=== PATIENT | male | born 1950 | race Caucasian/White ===

== ENCOUNTER 2023-04-02 18:03 | Inpatient (IN) | payer OTHER, SELFPAY ==
[2023-04-02] VITALS (33 sets, daily range): BP systolic 89–124; BP diastolic 55–91; PULSE 78–134; RESP 18–28; TEMP 36.9–37.4; O2SAT 94–99; BMI 28.1; BMI 28.5
--- NOTE | 2023-04-02 18:07 | ECG_ITS ---
[facility] Test Date: 2023-04-02 Pat Name: CINDY SOTELO Department: Room: - Gender: Male [employer] Operator: : 1950 Requested By: [id number] Order Number: [id number] Reading MD: ROSALINDA FIERRO Measurements Intervals [place] Rate: 107 P: -94360 DC: -26706 QRS: -52 QRSD: 88 T: 64 QT: 350 QTc: 413 Interpretive Statements 97209 Atrial fibrillation with rapid ventricular response 2420 RSR (QR) in lead V1/V2, consistent with right ventricular conduction delay 2630 Left anterior fascicular block [address] & [place] abnormality 0102 ARTIFACT PRESENT 9150 abnormal ECG No previous ECG available for comparison Electronically Signed On 04-03-2023 6:55:42 EDT by ROSALINDA FIERRO
--- NOTE | 2023-04-02 18:08 | XR_ITS ---
[address] [address] Patient Name: CINDY SOTELO MRN: [id number] date: 1950 Sex: M Assigned Patient Location: ER Current Patient Location: ED.MAIN Accession/Order Number: [id number] Exam Date: 04/02/2023 18:32 Report Date: 04/02/2023 18:47 At the request of: SANGEETHA SMALLWOOD Procedure: XR chest 1V EXAMINATION: XR chest 1V HISTORY: Weakness COMPARISON: Portable chest 08/02/2022 TECHNIQUE: Portable chest FINDINGS: The lung parenchyma is free of consolidation or infiltrate. No pneumothorax or pleural effusion. The cardiac, mediastinal and hilar contours are normal. The visualized osseous structures exhibit no gross abnormality. XR/XR chest 1V IMPRESSION: No acute cardiopulmonary abnormality. Electronically authenticated by: SAMUEL BENITEZ Date: 04/02/2023 18:47
--- NOTE | 2023-04-02 18:08 | ED.WEAKNESS1 ---
HPI - Weakness General Chief complaint: Weakness Stated complaint: WEEKNESS Time Seen by Provider: 04/02/23 18:07 Source: patient Mode of arrival: ambulance Limitations: no limitations History of Present Illness HPI Narrative: 72-year-old male presents for generalized weakness. He can't tell me how long she's had this weakness. He states he's had some trouble walking and his mouth feels dry. He doesn't seem to be complaining of any pain and he hasn't had a known fever. He doesn't complain of abdominal pain. He has a history of cancer and has colostomy for two years. He has an indwelling Stevens catheter as well. He does not complain of abdominal pain or vomiting. Related Data Home Medications Medication Instructions Recorded Confirmed allopurinol 100 mg tablet 100 mg PO 04/02/23 gabapentin 300 mg capsule 300 mg PO Q12H 04/02/23 04/02/23 potassium chloride 20 mEq 20 meq PO DAILY 04/02/23 04/02/23 tablet,extended release(part/cryst) Allergies Allergy/AdvReac Type Severity Reaction Status Date / Time No Known Drug Allergies Allergy Verified 04/02/23 18:03 Review of Systems ROS Narrative A ten point review of systems is negative except as noted above. Exam Narrative Exam Narrative: Nurses note and vital signs reviewed and patient is not hypoxic. General: The patient appears in no apparent distress. Patient is resting comfortably on cart. Skin: Warm, dry, no pallor noted. There is no rash noted. Head: Normocephalic, atraumatic Eye: Normal conjunctiva, no drainage Ears, Nose, Mouth, and Throat: oral mucosa is somewhat dry Cardiovascular: irregularly irregular and minimally tachycardic Respiratory: Patient is in no distress, no accessory muscle use, lungs are clear to auscultation, no wheezing, rales or rhonchi Back: non-tender, no CVA tenderness bilaterally to percussion. GI: no tenderness to palpation, no masses appreciated. No rebound, guarding, or rigidity noted. colostomy in place and functioning normally Musculoskeletal: The patient has no evidence of calf tenderness, no pitting edema, symmetrical pulses noted bilaterally Neurological: A&O, normal speech Psychiatric: Cooperative Constitutional Vital Signs, click to edit/add: Last Vital Signs Temp 98.5 F 04/02/23 18:03 Pulse 78 04/02/23 18:03 Resp 19 04/02/23 18:03 BP 124/91 04/02/23 18:03 Pulse Ox 97 04/02/23 18:03 O2 Del Method Room Air 04/02/23 18:03 Course Vital Signs Vital signs: Vital Signs Temperature 98.5 F 04/02/23 18:03 Pulse Rate 78 04/02/23 18:03 Respiratory Rate 19 04/02/23 18:03 Blood Pressure 124/91 04/02/23 18:03 Pulse Oximetry 97 04/02/23 18:03 Oxygen Delivery Method Room Air 04/02/23 18:03 Temperature 98.5 F 04/02/23 18:03 Pulse Rate 78 04/02/23 18:03 Respiratory Rate 19 04/02/23 18:03 Blood Pressure 124/91 04/02/23 18:03 Pulse Oximetry 97 04/02/23 18:03 Oxygen Delivery Method Room Air 04/02/23 18:03 MDM - Weakness MDM Narrative Medical decision making narrative: Tests are ordered and the patient is signed out to Dr. Santoyo at change of shift at 7 PM. Lab Data Labs: Lab Results 04/02/23 Range/Units 18:29 Urine Color Lt. yellow (YELLOW) Urine Clarity Slightly cloudy A (CLEAR) Urine pH 6.0 (5.0-9.0) Ur Specific [place] 1.015 (1.005-1.025) Urine Protein 100 A (NEG/TRACE) mg/dL Urine Glucose (UA) 100 A (NEGATIVE) mg/dL Urine Ketones Negative (NEGATIVE) mg/dL Urine Occult Blood Moderate A (NEGATIVE) Urine Nitrite Negative (NEGATIVE) Urine Bilirubin Negative (NEGATIVE) Urine Urobilinogen 0.2 (0.2-1.0) EU/dL Ur Leukocyte Esterase Small A (NEGATIVE) Discharge Plan Discharge Patient Disposition: Still a Patient
[2023-04-02] MEDS: 0.9 % SODIUM CHLORIDE 500 ML 1000 ML IV (18:29)
[2023-04-02 18:34] LABS: Bilirubin Urine NEGATIVE (NEGATIVE); Blood Urine MODERATE (NEGATIVE); Color Urine LT. YELLOW (YELLOW); Glucose Urine UA 100 mg/dL (NEGATIVE); Ketones Urine NEGATIVE (NEGATIVE); Leukocyte Esterase Urine SMALL (NEGATIVE); Nitrite Urine NEGATIVE (NEGATIVE); Protein Urine 100 mg/dL (NEG/TRACE); Specific Gravity Urine 1.015 (1.005-1.025); Urobilinogen Urine 0.2 EU/dL (0.2-1.0)
[2023-04-02 18:35] LABS: Clarity Urine SLIGHTLY CLOUDY (CLEAR)
[2023-04-02 18:42] LABS: Amorphous Sediment Urine FEW; Bacteria Urine NONE SEEN #/HPF (NONE SEEN); Cast Seen? SEEN #/LPF (NONE SEEN); Coarse Granular Casts Urine FEW; Crystals Seen? None Seen #/HPF (None Seen); Mucus Urine NONE SEEN (NONE SEEN); RBC Urine 0-2 #/HPF (0-2); Squamous Epithelial Cell Urine FEW #/LPF (NONE/RARE); Urine Culture Indicated NO; WBC Urine 0-2 #/HPF (NONE SEEN)
[2023-04-02 19:28] LABS: Hemoglobin 9.1 g/dL (14.0-18.0); Mean Corpuscular HGB Conc 33.7 g/dL (29.9-35.2); Mean Corpuscular Volume 89.1 fL (80.0-94.0); Mean Platelet Volume 10.6 fL (9.5-13.5); Platelet Count 81 10^3/uL (150-450); Red Blood Count 3.03 10^6/uL (4.70-6.10); Red Cell Distribution Width 12.9 % (11.0-15.0)
[2023-04-02 19:33] LABS: BUN Creatinine Ratio 8.8; Calcium 8.4 mg/dL (8.5-10.1); Carbon Dioxide 20.4 mmol/L (21.0-32.0); Chloride 99 mmol/L (98-107); Estimated GFR (African America 28 (>=60); Estimated GFR (Non-African Ame 23 (>=60); Glucose 199 mg/dL (74-106); Potassium 4.4 mmol/L (3.5-5.1); SARS-CoV-2 Ag NEGATIVE (NEGATIVE); Sodium 132 mmol/L (136-145)
[2023-04-02 19:48] LABS: White Blood Count 1.2 10^3/uL (4.0-11.0)
[2023-04-02 20:05] LABS: Alanine Aminotransferase 43 U/L (16-63); Albumin Globulin Ratio 0.5; Albumin Level 2.5 g/dL (3.4-5.0); Alkaline Phosphatase 60 U/L (46-116); Aspartate Amino Transferase 22 U/L (15-37); Bilirubin Direct 0.3 mg/dL (0.0-0.2); Bilirubin Total 0.6 mg/dL (0.2-1.0); Globulin 5.3 g/dL; Total Protein 7.8 g/dL (6.4-8.2)
[2023-04-02 20:47] LABS: Lactate/Lactic Acid 1.7 mmol/L (0.4-2.0)
--- NOTE | 2023-04-02 20:50 | ED_ITS ---
HPI - Weakness General Chief complaint: Weakness Stated complaint: WEEKNESS Time Seen by Provider: 04/02/23 18:07 Source: patient and family (son) Mode of arrival: ambulance Limitations: no limitations History of Present Illness HPI Narrative: This 72 year old male was signed out to me at shift change pending labs and further evaluation. He presents to emergency department for evaluation of generalized weakness. The patient has a history of colon cancer and has a colostomy and is currently undergoing treatment at [facility] for metastatic cancer that is only in his liver and lung. He is scheduled for a brain scan at [facility] this or Sunday. The patient states that he is not having any pain but is very weak. He was unable to get out of bed earlier today. The family is concerned because he lives alone. His son has been taking him back and forth to his medical appointments. The patient has not had a fever. His colostomy is functioning and his Lima catheter is functioning. The patient had a Lima catheter placed due to bladder weakness after going through radiation therapy and chemotherapy for his colon cancer. The patient admits his appetite has been minimal at best. He was noted to be tachycardic with dry mucous membranes upon arrival. Arrival with defibrillation beats for minute with a left axis. The patient has never been told in the past that he has atrial fibrillation and his son has never been told that he has atrial fibrillation. The patient is also noted to be neutropenic with a white count of 1.2 and has an elevated creatinine at 2.72. Neither the patient nor his son have ever been told that the patient has kidney problems. Related Data Home Medications Medication Instructions Recorded Confirmed allopurinol 100 mg tablet 100 mg PO DAILY 04/02/23 04/02/23 alogliptin 25 mg tablet 25 mg PO DAILY 04/02/23 04/02/23 amlodipine 5 mg tablet 5 mg PO DAILY 04/02/23 04/02/23 atorvastatin 40 mg tablet 40 mg PO DAILY 04/02/23 04/02/23 ferrous sulfate 325 mg (65 mg 325 mg PO DAILY 04/02/23 04/02/23 iron) tablet (Feosol) gabapentin 300 mg capsule 300 mg PO Q12H 04/02/23 04/02/23 losartan 50 mg tablet (Cozaar) 50 mg PO DAILY 04/02/23 04/02/23 metformin 500 mg tablet 500 mg PO BID 04/02/23 04/02/23 ondansetron HCl 8 mg tablet 8 mg PO Q8H 04/02/23 04/02/23 potassium chloride 20 mEq 20 meq PO DAILY 04/02/23 04/02/23 tablet,extended release(part/cryst) tamsulosin 0.4 mg capsule 0.4 mg PO Q24H 04/02/23 04/02/23 tamsulosin 0.4 mg capsule (Flomax) 0.8 mg PO Q24H 04/02/23 04/02/23 Allergies Allergy/AdvReac Type Severity Reaction Status Date / Time No Known Drug Allergies Allergy Verified 04/02/23 18:03 Exam Constitutional Vital Signs, click to edit/add: Last Vital Signs Temp 98.5 F 04/02/23 18:03 Pulse 97 H 04/02/23 21:00 Resp 23 04/02/23 21:00 BP 110/61 04/02/23 21:00 Pulse Ox 97 04/02/23 18:07 O2 Del Method Room Air 04/02/23 18:03 Course Vital Signs Vital signs: Vital Signs Blood Pressure 124/91 04/02/23 18:02 Temperature 98.5 F 04/02/23 18:03 Pulse Rate 97 H 04/02/23 21:00 Respiratory Rate 04/02/23 21:00 Blood Pressure 110/61 04/02/23 21:00 Pulse Oximetry 97 04/02/23 18:07 Oxygen Delivery Method Room Air 04/02/23 18:03 MDM - Weakness MDM Narrative Medical decision making narrative: This 72-year-old female with a history of colon cancer who is currently undergoing chemotherapy and sees Dr. Alonso brought emergency department by his family for evaluation of generalized weakness. The patient's son states that he lives alone but they check on him every day. He was fine Sunday and drove to [facility] and visited with his sister. He ambulates with the assistance of a walker. He started becoming increasingly weak yesterday and today was unable to get out of bed. He denies any complaints of pain. He had chemotherapy 2 weeks ago. He is scheduled to have a brain scan and MediPort placed for future chemotherapy treatments. Signed out to me at shift change pending labs and reevaluation. He was noted to appear to be dehydrated. An EKG done upon arrival was atrial fibrillation in the 107 bpm with a left axis. The patient nor his son have ever been told that he had atrial fibrillation. An IV was placed and he was receiving IV hydration upon my arrival. He was seen and evaluated. He appears comfortable, but pressure is borderline. His pulse has been between 90 and 120bpm. He has not had a fever. He does have a colostomy and indwelling lima. Ostomy has been functioning normal and the Lima catheter has been draining urine. Urine was sent for evaluation as it was thought that he may have a urinary tract infection. Urine was clean from infection. He has a low white count at 1.2 with a low hemoglobin of 9.1 and low platelet count of 81. This is likely related to his chemotherapy treatments that he has been receiving for the metastatic colon cancer to his liver. He has an elevated because at 199, he is diabetic, he also has an elevated BUNs 24 and elevated creatinine at 2.72. According to the patient and his son he has never had any kidney disease that he knows of. Chest x-ray was negative for acute findings. He received IV fluids in the emergency department and has remained hemodynamically stable. The case was discussed with the hospitalist who recommends that his Cozaar and other blood pressure medications are discontinued at this time and he is to receive metoprolol 50 mg twice daily. He was given the 1st dose of 25 mg orally in the emergency department as his blood pressure has been variable. At the time of this dictation is 118/60 with a pulse of 98. Due to his pancytopenia we are not going to institute anticoagulation for the new onset atrial fibrillation. Lab Data Lab results narrative: Pateint is neutropenic with a white count of 1.2 anemic with a hemoglobin of 9.1 and hematocrit of 27. Platelet count is low at 81. BUNs elevated at 24 and creatinine is elevated at 2.72. Urinalysis is negative for infection. COVID 19 is negative. Labs: Lab Results 04/02/23 04/02/23 Range/Units 18:29 19:00 WBC 1.2 L* (4.0-11.0) 10^3/uL RBC 3.03 L (4.70-6.10) 10^6/uL Hgb 9.1 L (14.0-18.0) g/dL Hct 27.0 L (42.0-54.0) % MCV 89.1 (80.0-94.0) fL MCH 30.0 (25.9-34.0) pg MCHC 33.7 (29.9-35.2) g/dL RDW 12.9 (11.0-15.0) % Plt Count 81 L (150-450) 10^3/uL MPV 10.6 (9.5-13.5) fL Seg Neuts % (Manual) 30.0 Lymphocytes % (Manual) 48.0 (20.5-60.0) % Monocytes % (Manual) 20.0 H (1.7-12.0) % Eosinophils % (Manual) 0.0 L (0.9-7.0) % Basophils % (Manual) 2.0 (0.2-2.0) % Neutrophils # (Manual) 0.36 L (1.4-6.5) 10^3/uL Lymphocytes # (Manual) 0.57 L (1.20-3.80) 10^3/uL Monocytes # (Manual) 0.24 L (0.30-0.80) 10^3/uL Eosinophils # (Manual) 0.00 (0.00-0.70) 10^3/uL Basophils # (Manual) 0.02 (0.00-0.10) 10^3/uL Sodium 132 L (136-145) mmol/L Potassium 4.4 (3.5-5.1) mmol/L Chloride 99 (98-107) mmol/L Carbon Dioxide 20.4 L (21.0-32.0) mmol/L Anion Gap 17.0 BUN 24.0 H (7.0-18.0) mg/dL Creatinine 2.72 H (0.70-1.30) mg/dL Est GFR ( Amer) 28 L (>=60) Est GFR (Non-Af Amer) 23 L (>=60) BUN/Creatinine Ratio 8.8 Glucose 199 H (74-106) mg/dL Lactate 1.7 (0.4-2.0) mmol/L Calcium 8.4 L (8.5-10.1) mg/dL Total Bilirubin 0.6 (0.2-1.0) mg/dL Direct Bilirubin 0.3 H (0.0-0.2) mg/dL AST 22 (15-37) U/L ALT 43 (16-63) U/L Alkaline Phosphatase 60 (46-116) U/L Troponin I High Sens 14.7 (4.0-76.1) pg/mL Total Protein 7.8 (6.4-8.2) g/dL Albumin 2.5 L (3.4-5.0) g/dL Globulin 5.3 g/dL Albumin/Globulin Ratio 0.5 Urine Color Lt. yellow (YELLOW) Urine Clarity Slightly cloudy A (CLEAR) Urine pH 6.0 (5.0-9.0) Ur Specific [place] 1.015 (1.005-1.025) Urine Protein 100 A (NEG/TRACE) mg/dL Urine Glucose (UA) 100 A (NEGATIVE) mg/dL Urine Ketones Negative (NEGATIVE) mg/dL Urine Occult Blood Moderate A (NEGATIVE) Urine Nitrite Negative (NEGATIVE) Urine Bilirubin Negative (NEGATIVE) Urine Urobilinogen 0.2 (0.2-1.0) EU/dL Ur Leukocyte Esterase Small A (NEGATIVE) Urine RBC 0-2 (0-2) #/HPF Urine WBC 0-2 A (NONE SEEN) #/HPF Ur Squamous Epith Cells Few A (NONE/RARE) #/LPF Urine Crystals None seen (None Seen) #/HPF Amorphous Sediment Few Urine Bacteria None seen (NONE SEEN) #/HPF Urine Casts Seen A (NONE SEEN) #/LPF Coarse Granular Casts Few Urine Mucus None seen (NONE SEEN) Ur Culture Indicated? 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, Leukopenia due to antineoplastic chemotherapy, Atrial fibrillation, new onset Prescriptions / Home Meds: No Action gabapentin 300 mg capsule 300 mg PO Q12H potassium chloride 20 mEq tablet,ER particles/crystals 20 meq PO DAILY allopurinol 100 mg tablet 100 mg PO DAILY tamsulosin 0.4 mg capsule 0.4 mg PO Q24H ferrous sulfate [Feosol] 325 mg (65 mg iron) tablet 325 mg PO DAILY metformin 500 mg tablet 500 mg PO BID atorvastatin 40 mg tablet 40 mg PO DAILY losartan [Cozaar] 50 mg tablet 50 mg PO DAILY amlodipine 5 mg tablet 5 mg PO DAILY alogliptin 25 mg tablet 25 mg PO DAILY ondansetron HCl 8 mg tablet 8 mg PO Q8H tamsulosin [Flomax] 0.4 mg capsule 0.8 mg PO Q24H Patient Comments: at night Referrals: Physician,Non-Staff, MD [Primary Care Provider] - 1 week
[2023-04-02 21:01] LABS: Troponin I High Sensitivity 14.7 pg/mL (4.0-76.1)
--- NOTE | 2023-04-02 21:02 | CT_ITS ---
[facility] [place] [id number] Patient Name: CINDY SOTELO MRN: [id number] date: 1950 Sex: M Assigned Patient Location: ER Current Patient Location: ER Accession/Order Number: [id number] Exam Date: 04/02/2023 21:10 Report Date: 04/02/2023 21:53 At the request of: MICHAEL MARKER Procedure: CT head/brain wo con EXAMINATION: CT head/brain wo con HISTORY: AMS - TECHNIQUE: CT head without contrast. All CT scans at this facility use dose modulation, iterative reconstruction, and/or weight based dosing when appropriate to reduce radiation dose to as low as reasonably achievable. COMPARISON: None. RESULT: Post-operative change: None. Acute change: No evidence of an acute intracranial process. Hemorrhage: No evidence of acute intracranial hemorrhage. Mass Lesion / Mass Effect: No evidence of an intracranial mass or extraaxial fluid collection. No significant mass effect. Chronic change: Patchy foci of low attenuation coefficient are present within the supratentorial white matter which is a nonspecific finding but likely represents moderate microvascular ischemia. Atherosclerotic calcification of the carotid siphons and vertebrobasilar arteries. Parenchyma: Moderate generalized volume loss. Ventricles: Ventricular enlargement concordant with the degree of parenchymal volume loss. Other: The calvarium, skull base , mastoids, orbits and extracranial soft tissues are unremarkable. Mild paranasal sinus mucosal thickening. CT/CT head/brain wo con IMPRESSION: 1. No acute intracranial abnormality; no acute infarct, intracranial hemorrhage or extra-axial collection. 2. Chronic microvascular ischemia and involutional changes. Electronically authenticated by: OLGA JAY Date: 04/02/2023 21:53
[2023-04-02 21:11] LABS: Lymphocytes Absolute Manual 0.57 10^3/uL (1.20-3.80); Monocytes Absolute Manual 0.24 10^3/uL (0.30-0.80); Segmented Neut Absolute Manual 0.36 10^3/uL (1.4-6.5)
[2023-04-02 21:12] LABS: Basophils Abs Manual 0.02 10^3/uL (0.00-0.10)
[2023-04-02] MEDS: METOPROLOL TARTRATE 25 MG TABLET PO (22:34)
[2023-04-03] VITALS (161 sets, daily range): BP systolic 98–146; BP diastolic 58–83; PULSE 60–94; RESP 0–34; TEMP 36.3–37.4; O2SAT 96–100; BMI 28.5
--- NOTE | 2023-04-03 01:34 | W.PM.TELEPN ---
Progress Note: Subjective Subjective Interval history: 72 year old male with history of type 2 diabetes, hypertension, hypercholesterolemia, benign prostatic hyperplasia with chronic indwelling Stevens catheter, iron deficiency anemia and colon cancer s/p resection with colostomy on chemotherapy, lives by himself presenting with generalized weakness frequent falls and altered mental status. History obtained from discussion with ER staff , bedside nurse and chart review. no family around. Apparently today he was found by his family (son ) unable to get out of bed, has a poor appetite not eating appear to be dry presents to the ER by ambulance. Upon arrival to the ER patient is normotensive with soft pressures, afebrile, atrial fibrillation with 100-120 ventricular beats per minute. Labs remarkable for elevated creatinine unknown baseline, pancytopenia. Unknown if AFib is new onset. Patient received metoprolol and 1 L normal saline with good control of heart rate. CT head without acute intracranial abnormality, CXR without acute cardiopulmonary process. Attempt to transfer patient was unsuccessful as patient Hospital where he gets his care in [facility] is close to transfers. Per family to keep patient at [facility], Hospital Medicine consulted for admission. Allergies: Unable to be obtained due to confusion home medications: Reconciled in chart will need to review with family to ensure accurate medication list. Past medical history: Hypertension, type 2 diabetes, hypercholesterolemia, BPH, colon cancer past surgical history: Colostomy social history: Lives by himself, at baseline independent of daily activities no known alcohol tobacco or drug use. Family history: Noncontributory to today's visit Exam Narrative Exam Narrative: Vitals: Blood pressure 118/66, pulse 82, respiratory rate 20, temperature 99.4?, 97% on room air general: Lying in bed, confused, comfortable in no acute distress HEENT: Dry mucous membranes, wearing eyeglasses, hard of hearing, normocephalic, atraumatic respiratory: Bilateral air entry, no accessory muscle use cardio: Regular rate irregular rhythm, no peripheral edema abdomen: Colostomy and Stevens catheter noted, slightly distended, no tenderness neuro: Moving all extremities, no focal deficits extremities: Atraumatic Constitutional Vital Signs, click to edit/add: Last Vital Signs Temp 99.4 F 04/02/23 23:21 Pulse 82 04/02/23 23:21 Resp 22 04/02/23 23:21 BP 118/66 04/02/23 23:21 Pulse Ox 97 04/02/23 23:21 O2 Del Method Room Air 04/02/23 23:21 Progress Note: Objective Labs Labs: Short CBC 04/02/23 Range/Units 19:00 WBC 1.2 L* (4.0-11.0) 10^3/uL Hgb 9.1 L (14.0-18.0) g/dL Hct 27.0 L (42.0-54.0) % Plt Count 81 L (150-450) 10^3/uL BMP 04/02/23 19:00 Sodium 132 L Potassium 4.4 Chloride 99 Carbon Dioxide 20.4 L BUN 24.0 H Creatinine 2.72 H Glucose 199 H Calcium 8.4 L Liver Function 04/02/23 Range/Units 19:00 Total Bilirubin 0.6 (0.2-1.0) mg/dL Direct Bilirubin 0.3 H (0.0-0.2) mg/dL AST 22 (15-37) U/L ALT 43 (16-63) U/L Alkaline Phosphatase 60 (46-116) U/L Albumin 2.5 L (3.4-5.0) g/dL Urine 04/02/23 Range/Units 18:29 Urine Color Lt. 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 - Neurochecks, hold home gabapentin - with new onset atrial fibrillation check brain MRI to ensure no ischemic events - fall precautions, PT OT evaluation - Check UA, B12, folate, TSH atrial fibrillation with controlled ventricular rate, likely new onset - check echocardiogram, cycle troponin. - Rate controlled with metoprolol will order 25 b.i.d. and hold all home antihypertensives due to soft pressures - will need to discuss with patient anticoagulation given thrombocytopenia, for now give aspirin - check TSH, magnesium level primary hypertension now with soft pressures likely due to dehydration - home regimen amlodipine, losartan that will be on hold - start metoprolol 25 b.i.d. with hold parameters acute kidney injury, unknown baseline creatinine - exchange Stevens catheter, start IV fluid hydration and maintain normotension - hold home metformin, volume expansion with IV fluids - avoid nephrotoxic agents and renally dose medications colon cancer with suspected liver metastasis will need to obtain records on chemotherapy pancytopenia likely due to chemotherapy immunosuppressed status colostomy - monitor CBC, transfuse to keep hemoglobin above 7, platelets above 10 or if bleeding, neutropenic precautions consider G-CSF - monitor Vitals closely temperature 99.7?. - obtain records from outside hospital Hypercholesteremia on home atorvastatin type 2 diabetes mellitus -check A1c, sliding scale insulin coverage hyperuricemia on home allopurinol BPH with chronic indwelling Stevens catheter, recent Flomax, exchange Stevens catheter code status: Presumed full code for now until discussion with family DVT prophylaxis: Heparin Disposition: Will likely need placement as patient lives alone with frequent falls Communications: Discussed with emergency room physician, bedside nurse, updated plan of care and all questions answered to their satisfaction. as the provider of this telehealth evaluation requested by the patient's evaluating physician, I attest that I introduced myself to the patient, provided my credentials and determined that telemedicine via a real-time 2 weight interactive audio and video platform is an appropriate and effective means of providing this service. I reviewed the patient's chart and had a discussion with the member of the patient's treatment team. We mutually agreed with continuation of this evaluation via telemedicine. This virtual encounter was taking from [place] approximately 30 minutes. The nurse was present during the time of the encounter and was able to move the stethoscope in appropriate discussions. Patient was evaluated at 1:20 a.m.. Telemedicine Attestation Telemedicine Attestation I conducted this encounter from [[facility] ] via secure live, [id number] video conference with the patient, located at [facility] with [medicl team]. Prior to the interview, the risks and benefits of telemedicine were discussed with the patient and verbal consent was obtained.
[2023-04-03 02:52] LABS: Hemoglobin 7.4 g/dL (14.0-18.0); Mean Corpuscular Hemoglobin 29.5 pg (25.9-34.0); Mean Platelet Volume 10.3 fL (9.5-13.5); Platelet Count 113 10^3/uL (150-450); Red Blood Count 2.51 10^6/uL (4.70-6.10); Red Cell Distribution Width 12.9 % (11.0-15.0)
[2023-04-03] MEDS: LACTATED RINGER'S SOLUTION 1,000 ML 125 ML IV ×2 (02:54→21:18)
[2023-04-03] MEDS: SODIUM BICARBONATE 325 MG TABLET 650 MG PO (02:54)
[2023-04-03] MEDS: ACETAMINOPHEN 325 MG TABLET 650 MG PO (02:54)
[2023-04-03] MEDS: PIPERACILLIN SODIUM/TAZOBACTAM 3.375 GM in 0.9 % SODIUM CHLORIDE 50 ML IV (03:04)
[2023-04-03 03:05] LABS: Ammonia 11 umol/L (11-32); Anion Gap 17.3; Calcium 8.1 mg/dL (8.5-10.1); Carbon Dioxide 19.8 mmol/L (21.0-32.0); Chloride 100 mmol/L (98-107); Estimated GFR (African America 29 (>=60); Estimated GFR (Non-African Ame 24 (>=60); Glucose 179 mg/dL (74-106); Magnesium 1.4 mg/dL (1.8-2.4); Potassium 4.1 mmol/L (3.5-5.1); Sodium 133 mmol/L (136-145)
[2023-04-03 03:08] LABS: Estimated Average Glucose 214 mg/dL; Glycohemoglobin A1C 9.1 % (4.5-6.2)
[2023-04-03 03:11] LABS: Percent Iron Saturation 6.5 %
[2023-04-03 03:13] LABS: Troponin I High Sensitivity 18.3 pg/mL (4.0-76.1)
[2023-04-03 03:14] LABS: Lactate/Lactic Acid 0.9 mmol/L (0.4-2.0)
[2023-04-03 03:16] LABS: Glucometer 185 mg/dL (74-106)
[2023-04-03 03:17] LABS: Lactate Dehydrogenase 167 U/L (85-227); Thyroid Stimulating Hormone 1.055 uIU/mL (0.358-3.740)
[2023-04-03 03:27] LABS: White Blood Count 1.1 10^3/uL (4.0-11.0)
[2023-04-03 03:28] LABS: Hematocrit 23.1 % (42.0-54.0)
[2023-04-03] MEDS: VANCOMYCIN HCL 1,250 MG in 0.9 % SODIUM CHLORIDE 250 ML 250 MG IV (03:46)
[2023-04-03 04:12] LABS: Segmented Neut Absolute Manual 0.11 10^3/uL (1.4-6.5)
[2023-04-03 04:13] LABS: Basophils Abs Manual 0.02 10^3/uL (0.00-0.10); Eosinophils Absolute Manual 0.02 10^3/uL (0.00-0.70); Lymphocytes Absolute Manual 0.52 10^3/uL (1.20-3.80); Monocytes Absolute Manual 0.41 10^3/uL (0.30-0.80)
[2023-04-03] MEDS: MAGNESIUM SULFATE IN WATER 2 GM/50 ML PREMIX IV (04:41)
[2023-04-03] MEDS: ONDANSETRON 4 MG RAPDIS TABLET 8 MG BUCCAL ×2 (07:30→14:20)
[2023-04-03 07:49] LABS: Glucometer 165 mg/dL (74-106)
--- NOTE | 2023-04-03 07:53 | MR_ITS ---
The [address] [address] Patient Name: CINDY SOTELO MRN: [id number] date: 1950 Sex: M Assigned Patient Location: ICU Current Patient Location: ICU Accession/Order Number: [id number] Exam Date: 04/03/2023 08:30 Report Date: 04/03/2023 09:54 At the request of: SHAIKH STUART Procedure: MR head/brain wo con EXAM: MR head/brain wo con HISTORY: Metastatic cancer/confusion COMPARISON: 04/02/[address] TECHNIQUE: Axial sagittal T1, axial T2, axial FLAIR, axial GRE, axial DWI FINDINGS: There is no diffusion abnormality. There is moderate parenchymal volume loss including symmetrical volume loss of the temporal lobes.. There is moderate T2 hyperintensity in the central and periventricular white matter. This no cortical abnormality. There is no mass, mass effect, nor hydrocephalus. The vascular flow voids are patent. The extra-axial structures demonstrate a 16 mm dural based mass at the right cerebellopontine angle. Reference axial image 7. This most likely reflects a small meningioma. The internal auditory canals are patent. Minimal fluid in the mastoid tips. The orbits, sella, and craniocervical junction are unremarkable. MR/MR head/brain wo con IMPRESSION: No MRI evidence for acute ischemia. Moderate parenchymal volume loss. Moderate T2 hyperintensity in the periventricular white matter. 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
[2023-04-03] MEDS: ATORVASTATIN CALCIUM 40 MG TABLET PO (09:25)
[2023-04-03] MEDS: ALLOPURINOL 100 MG TABLET PO (09:25)
[2023-04-03] MEDS: FERROUS SULFATE 325 MG TABLET PO (09:25)
[2023-04-03] MEDS: METOPROLOL TARTRATE 25 MG TABLET PO ×2 (09:25→21:18)
[2023-04-03 10:03] LABS: SARS-CoV-2 NAA NOT DETECTED (NOT DETECTE)
--- NOTE | 2023-04-03 10:09 | CM.NOTE ---
Rounds made with Dr. High, consult to Dr. Peña for pt and will reach out to Dr. Alonso (pt's oncologist also). Discussed plan of care with pt and granddaughter.
[2023-04-03 10:44] LABS: Alanine Aminotransferase 39 U/L (16-63); Albumin Globulin Ratio 0.5; Albumin Level 2.3 g/dL (3.4-5.0); Alkaline Phosphatase 61 U/L (46-116); Anion Gap 15.6; Aspartate Amino Transferase 28 U/L (15-37); BUN Creatinine Ratio 9.2; Bilirubin Total 0.5 mg/dL (0.2-1.0); Calcium 8.7 mg/dL (8.5-10.1); Carbon Dioxide 18.5 mmol/L (21.0-32.0); Chloride 100 mmol/L (98-107); Estimated GFR (African America 28 (>=60); Estimated GFR (Non-African Ame 23 (>=60); Globulin 5.1 g/dL; Glucose 182 mg/dL (74-106); Potassium 4.1 mmol/L (3.5-5.1); Sodium 130 mmol/L (136-145); Total Protein 7.4 g/dL (6.4-8.2); Uric Acid 4.7 mg/dL (3.5-7.2)
--- NOTE | 2023-04-03 11:39 | PM.HP ---
H&P: HPI History of Present Illness Chief complaint: Generalized weakness Narrative: 72 y o male was brought via EMS last night for change in mental status and generalized weakness. Patient was seeing his Oncologist for surveillance after treatment for colorectal cancer when he was discovered to have metastatic small cell lung cancer last month and was then started on IV chemotherapy and received first dose a little over a week ago. He reports being tired, weak with poor PO intake since receiving chemo and last night his family could not even get him off of his bed and had to call EMS for transport. He denies CP, SOB, fever, chills, abdominal pain, urinary complaints. He was admitted overnight for acute kidney injury, generalized weakness and change in mental status. Patient received broad specturm abx - Vancomycin/Zosyn for presumed bacterial infection. This morning - he was sitting on a chair, appeared comfortable. He is still feeling weak, tired and has little/no energy. He is back to his baseline mental status and not confused anymore. Review of Systems ROS Status of ROS 10 or more systems reviewed and unremarkable except as noted in history and below [facility] Medical History (Updated 04/03/23 @ 12:09 by Shaikh Lennox MD) Surgical History (Updated 04/03/23 @ 12:06 by Shaikh Lennox MD) Social History (Updated 04/03/23 @ 12:07 by Shaikh Lennox MD) Within the past year, how often did you have a drink containing alcohol: never Score interpretation: A score less than 4 is consistent with normal alcohol consumption. Non-prescribed substance use: denies use Gender Identity: male Meds Home Medications and Allergies Home Medications Medication Instructions Recorded Confirmed Type allopurinol 100 mg tablet 100 mg PO DAILY 04/02/23 04/03/23 History amlodipine 5 mg tablet 5 mg PO DAILY 04/02/23 04/02/23 History atorvastatin 40 mg tablet 40 mg PO DAILY 04/02/23 04/02/23 History ferrous sulfate 325 mg (65 mg 325 mg PO DAILY 04/02/23 04/02/23 History iron) tablet (Feosol) gabapentin 300 mg capsule 300 mg PO Q12H 04/02/23 04/02/23 History losartan 50 mg tablet (Cozaar) 50 mg PO DAILY 04/02/23 04/02/23 History ondansetron HCl 8 mg tablet 8 mg PO Q8H 04/02/23 04/02/23 History tamsulosin 0.4 mg capsule (Flomax) 0.8 mg PO BEDTIME 04/02/23 04/03/23 History cholecalciferol (vitamin D3) 50 2,000 unit PO DAILY 04/03/23 04/03/23 History mcg (2,000 unit) tablet (Thera-D) insulin aspart U-100 100 unit/mL 12 unit subcut .BIDAC 04/03/23 04/03/23 History (3 mL) subcutaneous pen (Novolog FlexPen U-100 Insulin aspart) insulin glargine-yfgn 100 unit/mL 34 unit subcut BID 04/03/23 04/03/23 History (3 mL) subcutaneous pen metformin 500 mg tablet,extended 500 mg PO BID 04/03/23 04/03/23 History release 24 hr semaglutide 1 mg/dose (2 mg/1.5 1 mg subcut QWEEK 04/03/23 04/03/23 History mL) subcutaneous pen injector (Ozempic) Allergies Allergy/AdvReac Type Severity Reaction Status Date / Time No Known Drug Allergies Allergy Verified 04/02/23 18:03 Exam Constitutional Vital Signs, click to edit/add: Last Vital Signs Temp 98 F 04/03/23 07:03 Pulse 71 04/03/23 11:21 Resp 14 04/03/23 11:21 BP 98/58 04/03/23 11:21 Pulse Ox 97 04/03/23 11:20 O2 Del Method Room Air 04/03/23 11:20 Documenting provider has reviewed patient's vital signs: yes Common normals: no apparent distress and oriented x3 General appearance: cooperative [facility] Common normals: normocephalic and head/scalp atraumatic Head and scalp: normocephalic and atraumatic Eye Common normals: conjunctivae normal and no scleral icterus Conjunctiva: conjunctiva(e) normal Respiratory Common normals: normal respiratory effort and clear to auscultation bilaterally Effort & inspection: able to speak in complete sentences Auscultation: clear to auscultation bilaterally Cardio Common normals: regular rate, S1 normal heart sound and S2 normal heart sound Rate: regular rate Heart sounds: S1 normal and S2 normal GI Common normals: soft to palpation, non-tender and no hepatosplenomegaly Inspection: ostomy present Palpation: soft and no hepatosplenomegaly Extremity Common normals: no clubbing, cyanosis or edema Neuro Common normals: oriented x3, moves all extremities and no focal motor deficits Psych Common normals: mental status grossly normal, denies hallucinations, denies homicidal ideation and denies suicidal ideation Results Labs Labs: Short CBC 04/02/23 04/03/23 Range/Units 19:00 02:28 WBC 1.2 L* 1.1 L* (4.0-11.0) 10^3/uL Hgb 9.1 L 7.4 L (14.0-18.0) g/dL Hct 27.0 L 23.1 L* (42.0-54.0) % Plt Count 81 L 113 L (150-450) 10^3/uL BMP 04/02/23 04/03/23 04/03/23 19:00 02:28 10:11 Sodium 132 L 133 L 130 L Potassium 4.4 4.1 4.1 Chloride 99 100 100 Carbon Dioxide 20.4 L 19.8 L 18.5 L BUN 24.0 H 24.0 H 25.0 H Creatinine 2.72 H 2.66 H 2.72 H Glucose 199 H 179 H 182 H Calcium 8.4 L 8.1 L 8.7 Liver Function 04/02/23 04/03/23 Range/Units 19:00 10:11 Total Bilirubin 0.6 0.5 (0.2-1.0) mg/dL Direct Bilirubin 0.3 H (0.0-0.2) mg/dL AST 22 28 (15-37) U/L ALT 43 39 (16-63) U/L Alkaline Phosphatase 60 61 (46-116) U/L Albumin 2.5 L 2.3 L (3.4-5.0) g/dL Urine 04/02/23 Range/Units 18:29 Urine Color Lt. yellow (YELLOW) Urine Clarity Slightly cloudy A (CLEAR) Urine pH 6.0 (5.0-9.0) Ur Specific [place] 1.015 (1.005-1.025) Urine Protein 100 A (NEG/TRACE) mg/dL Urine Glucose (UA) 100 A (NEGATIVE) mg/dL Assessment and Plan Assessment and Plan (1) Acute kidney injury: Assessment and Plan: Likely pre renal due to dehydration, poor PO intake along with tumor lysis syndrome. Normal kidney function at baseline. C/w IV hydration. Monitor I/O, creatinine closely. Avoid nephrotoxins. (2) Altered mental state: Assessment and Plan: Likely due to dehydration. MRI brain ordered to r/o metastatic disease. Negative. Back to his baseline today. Qualifiers: Altered mental status type: disorientation Qualified Code(s): R41.0 - Disorientation, unspecified (3) Pancytopenia due to antineoplastic chemotherapy: Assessment and Plan: due to chemotherapy. Neutropenic - no indication for abx as afebrile, negative infectious w/u Plt is low but does not meet the threshold for tx and also no evidence of overt/active bleeding. Will tx one unit of PRBC for Hb of 7.6 Consulted oncology. (4) Tumor lysis syndrome following antineoplastic drug therapy: Assessment and Plan: Was started on Allopurinol by Oncology and also received Rasburicase as outpatient. Check Uric acid. C/w IVF. Might night Rasburicase again. Monitor closely. (5) Atrial fibrillation, new onset: Assessment and Plan: New onset, no prior hx of Afib. Reverted to NSR with PO lopressor Ordered 2 D ECHO to assess cardiac structure. Will not start on AC for stroke px due to increased risk of bleeding. (6) Generalized weakness: Assessment and Plan: Likely due to poor PO intake, metastatic cancer, dehydration. PT/OT eval and rx. 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 Recently started on chemo for palliative and is due for second dose next week. Follows up with Dr Pace as outpatient. Plan Will require inpatient treatment of his current clinical condition and close monitoring as high risk of poor prognosis and clinical worsening. Will need aggressive IV hydration for his WON in view of tumor lysis syndrome.
--- NOTE | 2023-04-03 11:40 | CA_ITS ---
Patient: CINDY SOTELO. Exam Date: 04/03/2023 : 1950 Gender:M Ordering : SHAIKH Viola DAVIDSON . Admission #: [id number] Family : POLI RIGGS Order #: [id number] CLICK HERE TO VIEW EXAM ECHOCARDIOGRAM REPORT PROCEDURE: CA ECHO DOPPLER COMPLETE INDICATIONS: New Onset atrial fibrillation, hypertension, diabetes, colorectal cancer, small cell lung cancer, chemotherapy COMPARISON: None. DESCRIPTION: COMPLETE ECHOCARDIOGRAM Real-time transthoracic echocardiography with 2D, M-mode, spectral and color flow Doppler performed. QUALITY: Technical quality was good. LEFT VENTRICLE: Normal chamber size. Moderate concentric left ventricular hypertrophy. LV EF: Global left ventricular systolic function is difficult to assess but appears preserved; visually estimated ejection fraction is 55 to 60%. Cannot assess regional wall motion abnormality; consider contrast study for better delineation of endocardial borders. DIASTOLIC: Normal diastolic function. ATRIAL SEPTUM: Visually appears intact. LEFT ATRIUM: Normal chamber size. RIGHT ATRIUM: Normal chamber size. RIGHT VENTRICLE: Normal chamber size. Normal right ventricular systolic function. TRICUSPID VALVE: Normal mobility and thickness. No stenosis with trivial regurgitation. No evidence of pulmonary hypertension. RVSP 24 mmHg MITRAL VALVE: Normal mobility and thickness. No evidence of mitral valve stenosis. There is no mitral annular calcification. No mitral regurgitation. AORTIC VALVE: Normal trileaflet appearance. Mildly calcified aortic valve. Normal leaflet mobility. No evidence of aortic valve stenosis. No aortic regurgitation. AORTIC ROOT: Normal diameter and appearance. PULMONIC VALVE: Normal thickness and mobility. No stenosis. No regurgitation. PERICARDIUM: Anterior free space; trivial effusion versus fat pad. IVC: Collapses with inspirations. IVC is normal in size. CONCLUSION: 1. Global left ventricular systolic function is difficult to assess but appears preserved; visually estimated ejection fraction is 55 to 60% 2. Moderately increased left ventricular wall thickness 3. The right ventricle is normal in size and systolic function 4. Normal diastolic function 5. No significant valvular abnormalities 6. Anterior free space; trivial effusion versus fat pad Adult Echocardiography Procedure Report Left Ventricle LVEDD (3.7 - 5.6 cm): 4.66 cm LVESD (2.2 - 4.0 cm): 2.82 cm LVIVS thickness (0.6 - 1.2 cm): 1.27 cm LVPW thickness (0.5 - 1.0 cm): 1.39 cm e': 0.11 m/s E - e': 6.47 LVOT Max Gradient: 1.99 mm[Hg] LVOT Area (cm2): 0.71 m/s Peak Velocity (LVOT): 0.71 m/s LVOT Diameter 2.76 cm Left Atrium Left Atrium Systolic Dimension: 4.35 cm Mitral Valve MV E to A Ratio: 1.23 Mitral Valve A-Wave Peak Velocity: 0.59 m/s Mitral Valve E-Wave Peak Velocity: 0.73 m/s Right Ventricle Aorta AO Root Diam: 3.38 cm Aortic Valve AoV Area (Peak Urban): 2.96 cm2, 2.96 cm2 Peak Velocity(Antegrade Flow): 1.42 m/s Peak Gradient(Antegrade Flow): 8.10 mm[Hg] Tricuspid Valve Peak Velocity (Regurgitant Flow): 2.27 m/s, 2.23 m/s Pulmonic Valve Mean Gradient: 2.69 mm[Hg] Mean Velocity: 0.76 m/s Peak Velocity: 1.07 m/s, 1.07 m/s Peak Gradient: 4.61 mm[Hg], 4.61 mm[Hg] Right Atrium Dictated by: Lashawn Buckley M.D. on 04/05/2023 at 16:37 Approved by: Lashawn Buckley M.D. on 04/05/2023 at 16:41
[2023-04-03 12:00] LABS: Glucometer 193 mg/dL (74-106)
[2023-04-03 12:12] LABS: Uric Acid 4.6 mg/dL (3.5-7.2)
[2023-04-03 12:20] LABS: Basophils Percent Auto 1.3 % (0.2-2.0); Eosinophils Percent Auto 1.3 % (0.9-7.0); Hemoglobin 7.6 g/dL (14.0-18.0); Immature Granulocytes Abs Auto 0.03 10^3/uL (0.00-0.03); Lymphocytes Absolute Auto 0.7 10^3/uL (1.2-3.8); Lymphocytes Percent Auto 45.4 % (20.5-60.0); Mean Corpuscular HGB Conc 33.5 g/dL (29.9-35.2); Mean Corpuscular Hemoglobin 30.3 pg (25.9-34.0); Mean Corpuscular Volume 90.4 fL (80.0-94.0); Mean Platelet Volume 10.5 fL (9.5-13.5); Monocytes Absolute Auto 0.5 10^3/uL (0.3-0.8); Monocytes Percent Auto 34.2 % (1.7-12.0); Neutrophils Absolute Auto 0.2 10^3/uL (1.4-6.5); Neutrophils Percent Auto 15.8 % (43.0-75.0); Platelet Count 142 10^3/uL (150-450); Red Blood Count 2.51 10^6/uL (4.70-6.10); White Blood Count 1.5 10^3/uL (4.0-11.0)
--- NOTE | 2023-04-03 12:23 | PM.CN ---
Consult Note: HPI Data of Consult Requesting Physician: Shaikh Lennox MD Primary Care Provider: Non-Staff Physician, Consult Narrative Narrative: 72 y o male was brought via EMS last night for change in mental status and generalized weakness. He was seen by Dr Verónica Alonso in early Mar, contacted by [facility] colorectal surgeon Dr Sreekanth Whitten, for significant elevation in CEA that was thought to be related to recurrence of his known colorectal cancer. Imaging from Mar 02, 2023 and Mar 07, 2023 showed 6.8 x 5.6 x 5.7 cm liver mass, a new 8 mm left lower lobe / small cluster 5 mm RLL nodules, and RP adenopathy. Liver mass was biopsied and returned consistent with high grade neuroendocrine carcinoma, Ki-67 > 90% with non-specific site of origin. He noted fatigue, wt loss, 10 lb weight loss. Chemo/immunotherapy was discussed with pt. He had WON with Cr 2.0 but normal hepatic function. He did receive allopurinol for TLS prevention. He initiated carboplatin, etoposide, atezulizumab on 03/21/2023. He is now admitted with weakness, WON on CKD, pancytopenia. He reports being tired, weak with poor PO intake since receiving chemo and last night his family could not even get him off of his bed and had to call EMS for transport. He denies CP, SOB, fever, chills, abdominal pain, urinary complaints. He was admitted overnight for acute kidney injury, generalized weakness and change in mental status. Patient received broad specturm abx - Vancomycin/Zosyn for presumed bacterial infection. He did undergo MRI brain, negative for PATIENT SERVICE TECHNICIAN PST mets. Labs from 04/02/2023 show wbc 1.2, hgb 9.1, plt 81K. Labs from today, 04/03/2023 show wbc 1.5, hgb 7.6, plt 1423K. This morning - he was sitting on a chair, appeared comfortable. He is still feeling weak, tired and has little/no energy. He is back to his baseline mental status and not confused anymore. He did have 1 unit PRBC ordered by hospitalist team. I discussed above with pt and family at the bedside. We will add Neupogen 480 mcg x 2 days. We will test uric acid levels, and give rasburicase if needed. cc:: CC: Shaikh Lennox MD Review of Systems ROS Narrative A comprehensive 12 point review of systems was conducted and is negative other than that reported in the history of present illness. [facility] Medical History (Updated 04/03/23 @ 12:09 by Shaikh Lennox MD) Surgical History (Updated 04/03/23 @ 12:06 by Shaikh Lennox MD) Social History (Updated 04/03/23 @ 12:07 by Shaikh Lennox MD) Within the past year, how often did you have a drink containing alcohol: never Score interpretation: A score less than 4 is consistent with normal alcohol consumption. Non-prescribed substance use: denies use Gender Identity: male Meds Home Medications and Allergies Home Medications Medication Instructions Recorded Confirmed Type allopurinol 100 mg tablet 100 mg PO DAILY 04/02/23 04/03/23 History amlodipine 5 mg tablet 5 mg PO DAILY 04/02/23 04/02/23 History atorvastatin 40 mg tablet 40 mg PO DAILY 04/02/23 04/02/23 History ferrous sulfate 325 mg (65 mg 325 mg PO DAILY 04/02/23 04/02/23 History iron) tablet (Feosol) gabapentin 300 mg capsule 300 mg PO Q12H 04/02/23 04/02/23 History losartan 50 mg tablet (Cozaar) 50 mg PO DAILY 04/02/23 04/02/23 History ondansetron HCl 8 mg tablet 8 mg PO Q8H 04/02/23 04/02/23 History tamsulosin 0.4 mg capsule (Flomax) 0.8 mg PO BEDTIME 04/02/23 04/03/23 History cholecalciferol (vitamin D3) 50 2,000 unit PO DAILY 04/03/23 04/03/23 History mcg (2,000 unit) tablet (Thera-D) insulin aspart U-100 100 unit/mL 12 unit subcut .BIDAC 04/03/23 04/03/23 History (3 mL) subcutaneous pen (Novolog FlexPen U-100 Insulin aspart) insulin glargine-yfgn 100 unit/mL 34 unit subcut BID 04/03/23 04/03/23 History (3 mL) subcutaneous pen metformin 500 mg tablet,extended 500 mg PO BID 04/03/23 04/03/23 History release 24 hr semaglutide 1 mg/dose (2 mg/1.5 1 mg subcut QWEEK 04/03/23 04/03/23 History mL) subcutaneous pen injector (Ozempic) Allergies Allergy/AdvReac Type Severity Reaction Status Date / Time No Known Drug Allergies Allergy Verified 04/02/23 18:03 Exam Narrative Exam Narrative: Documenting provider has reviewed patient's vital signs: yes Common normals: no apparent distress and oriented x3 General appearance: cooperative HENMT Common normals: normocephalic and head/scalp atraumatic Head and scalp: normocephalic and atraumatic Eye Common normals: conjunctivae normal and no scleral icterus Conjunctiva: conjunctiva(e) normal Respiratory Common normals: normal respiratory effort and clear to auscultation bilaterally Effort & inspection: able to speak in complete sentences Auscultation: clear to auscultation bilaterally Cardio Common normals: regular rate, S1 normal heart sound and S2 normal heart sound Rate: regular rate Heart sounds: S1 normal and S2 normal GI Common normals: soft to palpation, non-tender and no hepatosplenomegaly Inspection: ostomy present Palpation: soft and no hepatosplenomegaly Extremity Common normals: no clubbing, cyanosis or edema Neuro Common normals: oriented x3, moves all extremities and no focal motor deficits Psych Common normals: mental status grossly normal, denies hallucinations, denies homicidal ideation and denies suicidal ideation Constitutional Vital Signs, click to edit/add: Last Vital Signs Temp 98 F 04/03/23 07:03 Pulse 73 04/03/23 12:00 Resp 14 04/03/23 11:21 BP 98/58 04/03/23 11:21 Pulse Ox 97 04/03/23 11:20 O2 Del Method Room Air 04/03/23 11:20 Results Labs Labs: Short CBC 04/02/23 04/03/23 Range/Units 19:00 02:28 WBC 1.2 L* 1.1 L* (4.0-11.0) 10^3/uL Hgb 9.1 L 7.4 L (14.0-18.0) g/dL Hct 27.0 L 23.1 L* (42.0-54.0) % Plt Count 81 L 113 L (150-450) 10^3/uL BMP 04/02/23 04/03/23 04/03/23 19:00 02:28 10:11 Sodium 132 L 133 L 130 L Potassium 4.4 4.1 4.1 Chloride 99 100 100 Carbon Dioxide 20.4 L 19.8 L 18.5 L BUN 24.0 H 24.0 H 25.0 H Creatinine 2.72 H 2.66 H 2.72 H Glucose 199 H 179 H 182 H Calcium 8.4 L 8.1 L 8.7 Liver Function 04/02/23 04/03/23 Range/Units 19:00 10:11 Total Bilirubin 0.6 0.5 (0.2-1.0) mg/dL Direct Bilirubin 0.3 H (0.0-0.2) mg/dL AST 22 28 (15-37) U/L ALT 43 39 (16-63) U/L Alkaline Phosphatase 60 61 (46-116) U/L Albumin 2.5 L 2.3 L (3.4-5.0) g/dL Urine 04/02/23 Range/Units 18:29 Urine Color Lt. yellow (YELLOW) Urine Clarity Slightly cloudy A (CLEAR) Urine pH 6.0 (5.0-9.0) Ur Specific [place] 1.015 (1.005-1.025) Urine Protein 100 A (NEG/TRACE) mg/dL Urine Glucose (UA) 100 A (NEGATIVE) mg/dL Assessment and Plan Assessment and Plan (1) Acute kidney injury: (2) Altered mental state: Qualifiers: Altered mental status type: disorientation Qualified Code(s): R41.0 - Disorientation, unspecified (3) Pancytopenia due to antineoplastic chemotherapy: (4) Tumor lysis syndrome following antineoplastic drug therapy: (5) Atrial fibrillation, new onset: (6) Generalized weakness: (7) Small cell lung cancer: Plan 72 y o male with stage IV high grade neuroendocrine cancer, liver mets, whom we are asked to see for pancytopenia related to chemotherapy, weakness, WON on CKD. Impression: # High grade neuroendocrine cancer, stage IV # Hepatic mets # Severe leukopenia / neutropenia # Anemia from chemotherapy # Thrombocytopenia from chemotherapy # WON on CKD # MS changes, resolved # Weakness from malignancy and chemotherapy # AFIB while admitted # Remote hx of low anterior resection for colorectal cancer, 2013. Did undergo APR in 2019 PLAN: - pt has received cycle 1 carboplatin, etoposide, tecentriq for high grade, stage IV, neuroendocrine cancer - labs show leukopenia, anemia, thrombocytopenia. We agree with 1 unit PRBC as ordered by hospitalist team. - i discussed with pharmacy. we will add neupogen 480 mcg x 2 doses, 04/04 and 04/05. if he is able to be discharged before 04/05, with improving counts, the 2nd dose of neupogen can be deferred. - i reviewed his MRI brain. it does not show PATIENT SERVICE TECHNICIAN PST mets - his WON on CKD is likely multifactorial from dehydration, infection, inflammation, chemo/immunotherapy. of note, his Cr was noted to be 2.0 at time of treatment, so he does have a component of renal insufficiency pretreatment. otherwise, his uric acid is normal, and there are no signs for tumor lysis. he does not require rasburicase, and can stay on outpt allopurinol. - he will need to f/u with Dr Alonso within the next several days after discharge for CBC / tox check. his next cycle of chemo-imumnotherapy will likely be delayed to allow for count recovery. Thank you for the consult. Will follow along and be available as needed. Celeste Peña MD Hematology Oncology
[2023-04-03 12:28] LABS: Hematocrit 22.7 % (42.0-54.0)
--- NOTE | 2023-04-03 14:28 | DIETREC ---
Recommend 237 mL Ensure HP 1x daily. If tolerated w/o GI distress, increase to BID.
--- NOTE | 2023-04-03 16:05 | SWNOTE1 ---
SW met with pt to discuss dc needs. Pt lives at home by himself. He does have family who does check on him and help his with appointments. Pt is getting chemo. Pt did voice he is weaker from his the chemo treatments and had several falls and laid in ground for hours as he could not get up. He does have a life alert but was not wearing it and did not have his cell phone with him. Pt did tell SW his daughter lives down by [place] and has told him that he can move in with her. He stated he wants to see if he gets better while he is here and then decide. SW did talk to him about HH coming in. [facility] go [facility] [place] and sees the nurse practicioner Dilcia Albright. SW to see if they offer HH services. Pt is open to this, depending on how much he improves while here. SW also spoke to pt about POA. SW let pt know that SW can do health care power of high density press operator with patient. SW explained this would be for when pt is not able to make medical decisions on his own, electing someone to make decisions for you. Pt then asked about putting someone in charge of his finances and his belongings and the money in his bank account. SW let him know that the healthcare POA only relates to medical decisions. Pt then stated he will call his care navigator through the [facility] to have them write up a living will, SW had recommended a dumbwaiter operator or high density press operator. Pt is going to go through the [facility] for assistance with finances, estate, etc. At this time pt does not feel it is necessary to complete a healthcare POA and states his family will agree on those decisions. TIFFANIE did recommend to think about it and it does not hurt to have a healthcare POA as sometimes the medical decisions can be difficult for families. SW to stop back in tomorrow to check with pt. TIFFANIE call [facility] and inquire about HH therapy services.
[2023-04-03 16:34] LABS: Glucometer 206 mg/dL (74-106)
[2023-04-03] MEDS: ENSURE CLEAR 237 ML LIQUID PO (16:37)
--- NOTE | 2023-04-03 16:43 | PC.NURSE ---
first unit of PRBC infused without difficulty. pt tolerated well.
[2023-04-03] MEDS: INSULIN ASPART 300 UNIT/3 ML PEN SUBQ ×2 (17:55→21:20)
[2023-04-03 20:36] LABS: Hemoglobin 8.8 g/dL (14.0-18.0)
[2023-04-03] MEDS: TAMSULOSIN HCL 0.4 MG CAPSULE 0.8 MG PO (21:18)
[2023-04-03] MEDS: INSULIN DETEMIR 300 UNIT/3 ML INSULN.PEN 10 UNIT SUBQ (21:22)
[2023-04-03 21:28] LABS: Glucometer 259 mg/dL (74-106)
--- NOTE | 2023-04-03 22:50 | ECG_ITS ---
The [facility] Test Date: 2023-04-03 Pat Name: CINDY SOTELO Department: Room: [facility] Gender: Male Online [employer]ing Specialist: : 1950 Requested By: SHAIKH STUART Order Number: [id number] Reading MD: ROSALINDA FIERRO Measurements Intervals [place] Rate: 71 P: -50433 W[place]: 240 QRS: -35 QRSD: 100 T: 58 QT: 406 QTc: 428 Interpretive Statements Sinus rhythm with first degree AV block 2440 Incomplete right bundle branch block 4364 Twave abnormality, possible anterolateral ischemia 7200 Abnormal left axis deviation 9150 abnormal ECG Electronically Signed On 04-05-2023 7:04:54 EDT by ROSALINDA FIERRO
[2023-04-04] VITALS (157 sets, daily range): BP systolic 94–131; BP diastolic 38–78; PULSE 52–90; RESP 0–48; TEMP 36.4–36.8; O2SAT 97–99
[2023-04-04 05:07] LABS: Haptoglobin 525 mg/dL (34-355)
[2023-04-04 05:16] LABS: Creatinine Urine Random 42.81 mg/dL (20.00-300.00); Sodium Urine Random 48 mmol/L (30-90)
[2023-04-04] MEDS: LACTATED RINGER'S SOLUTION 1,000 ML 125 ML IV ×3 (05:27→19:38)
[2023-04-04 05:38] LABS: Hematocrit 25.2 % (42.0-54.0); Hemoglobin 8.2 g/dL (14.0-18.0); Mean Corpuscular HGB Conc 32.5 g/dL (29.9-35.2); Mean Corpuscular Hemoglobin 28.6 pg (25.9-34.0); Mean Corpuscular Volume 87.8 fL (80.0-94.0); Mean Platelet Volume 10.4 fL (9.5-13.5); Platelet Count 154 10^3/uL (150-450); Red Blood Count 2.87 10^6/uL (4.70-6.10); White Blood Count 1.7 10^3/uL (4.0-11.0)
[2023-04-04 06:00] LABS: Alanine Aminotransferase 51 U/L (16-63); Albumin Globulin Ratio 0.4; Albumin Level 1.9 g/dL (3.4-5.0); Alkaline Phosphatase 54 U/L (46-116); Anion Gap 14.5; Aspartate Amino Transferase 47 U/L (15-37); BUN Creatinine Ratio 9.3; Bilirubin Total 0.6 mg/dL (0.2-1.0); Carbon Dioxide 20.2 mmol/L (21.0-32.0); Chloride 106 mmol/L (98-107); Estimated GFR (African America 25 (>=60); Estimated GFR (Non-African Ame 21 (>=60); Globulin 4.5 g/dL; Glucose 144 mg/dL (74-106); Potassium 3.7 mmol/L (3.5-5.1); Sodium 137 mmol/L (136-145); Total Protein 6.4 g/dL (6.4-8.2)
--- NOTE | 2023-04-04 06:41 | US_ITS ---
The [address] [address] Patient Name: CINDY SOTELO MRN: [id number] date: 1950 Sex: M Assigned Patient Location: ICU Current Patient Location: ICU Accession/Order Number: [id number] Exam Date: 04/04/2023 08:58 Report Date: 04/04/2023 10:14 At the request of: SHAIKH STUART Procedure: US renal bladder EXAM: US renal bladder; [id number] HISTORY: ATN. TECHNIQUE: Real-time sonography through the kidneys and bladder was performed. Color and spectral Doppler images of the kidneys were obtained. COMPARISON: MRI abdomen 03/07/2023. FINDINGS: RIGHT KIDNEY: Size: 10.5 x 9.2 x 6.5 cm. Volume 327 cc. Normal in size and echogenicity. No collecting system dilatation. No echogenic calculi. No solid mass on provided views. LEFT KIDNEY: Size: 9.3 x 6.5 x 4.3 cm. Volume 136 cc. Normal in size and echogenicity. No collecting system dilatation. No echogenic calculi. No solid mass on provided views. Partially exophytic cyst arising from upper pole of the left kidney measuring 2.9 x 2.6 x 2.2 cm (refer to MRI from 03/07/2023 for further description and recommendation). BLADDER: Bilateral ureteral jets are present. Postvoid residual volume of 37 mL. US/US renal bladder IMPRESSION: Negative exam. No hydronephrosis or acute renal abnormality demonstrated. Electronically authenticated by: PARTH CHOWDHURY Date: 04/04/2023 10:14
[2023-04-04 06:47] LABS: Eosinophils Absolute Manual 0.03 10^3/uL (0.00-0.70); Lymphocytes Absolute Manual 0.91 10^3/uL (1.20-3.80); Segmented Neut Absolute Manual 0.44 10^3/uL (1.4-6.5)
[2023-04-04 07:52] LABS: Glucometer 161 mg/dL (74-106)
[2023-04-04] MEDS: FERROUS SULFATE 325 MG TABLET PO (08:29)
[2023-04-04] MEDS: ATORVASTATIN CALCIUM 40 MG TABLET PO (08:29)
[2023-04-04] MEDS: CHOLECALCIFEROL (VITAMIN D3) 25 MCG/1,000 UNITS TABLET 50 MCG PO (08:29)
[2023-04-04] MEDS: ALLOPURINOL 100 MG TABLET PO (08:29)
[2023-04-04] MEDS: METOPROLOL TARTRATE 25 MG TABLET PO ×2 (08:30→21:35)
[2023-04-04] MEDS: ENSURE CLEAR 237 ML LIQUID PO (08:30)
[2023-04-04] MEDS: FILGRASTIM 480 MCG/0.8 ML SYRINGE SUBQ (10:06)
--- NOTE | 2023-04-04 10:36 | PM.NEPCN ---
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 He says he felt his legs were weak and could not walk. No nausea, vomiting reported but reports very poor appetite and oral intake, no diarrhea, no chest pain or palpitations. Pt did receive rasburicase and allopurinol prechemo to prevent TLS and uric acid was 4.6 on 04/03/2023. No dysuria, fever, chills, no other complaints, all other systems reviewed and negative. [facility] Medical History (Updated 04/03/23 @ 12:09 by Shaikh Lennox MD) Surgical History (Updated 04/03/23 @ 12:06 by Shaikh Lennox MD) Social History (Updated 04/03/23 @ 12:07 by Shaikh Lennox MD) Within the past year, how often did you have a drink containing alcohol: never Score interpretation: A score less than 4 is consistent with normal alcohol consumption. Non-prescribed substance use: denies use Gender Identity: male Meds Home Medications and Allergies Home Medications Medication Instructions Recorded Confirmed Type allopurinol 100 mg tablet 100 mg PO DAILY 04/02/23 04/03/23 History amlodipine 5 mg tablet 5 mg PO DAILY 04/02/23 04/02/23 History atorvastatin 40 mg tablet 40 mg PO DAILY 04/02/23 04/02/23 History ferrous sulfate 325 mg (65 mg 325 mg PO DAILY 04/02/23 04/02/23 History iron) tablet (Feosol) gabapentin 300 mg capsule 300 mg PO Q12H 04/02/23 04/02/23 History losartan 50 mg tablet (Cozaar) 50 mg PO DAILY 04/02/23 04/02/23 History ondansetron HCl 8 mg tablet 8 mg PO Q8H 04/02/23 04/02/23 History tamsulosin 0.4 mg capsule (Flomax) 0.8 mg PO BEDTIME 04/02/23 04/03/23 History cholecalciferol (vitamin D3) 50 2,000 unit PO DAILY 04/03/23 04/03/23 History mcg (2,000 unit) tablet (Thera-D) insulin aspart U-100 100 unit/mL 12 unit subcut .BIDAC 04/03/23 04/03/23 History (3 mL) subcutaneous pen (Novolog FlexPen U-100 Insulin aspart) insulin glargine-yfgn 100 unit/mL 34 unit subcut BID 04/03/23 04/03/23 History (3 mL) subcutaneous pen metformin 500 mg tablet,extended 500 mg PO BID 04/03/23 04/03/23 History release 24 hr semaglutide 1 mg/dose (2 mg/1.5 1 mg subcut QWEEK 04/03/23 04/03/23 History mL) subcutaneous pen injector (Ozempic) Allergies Allergy/AdvReac Type Severity Reaction Status Date / Time No Known Drug Allergies Allergy Verified 04/02/23 18:03 Exam Constitutional: Vital Signs, click to edit/add: Last Vital Signs Temp 97.9 F 04/04/23 07:55 Pulse 68 04/04/23 10:00 Resp 10 L 04/04/23 07:50 BP 115/57 04/04/23 07:47 Pulse Ox 97 04/04/23 04:10 O2 Del Method Room Air 04/03/23 20:01 Common normals: no apparent distress, average body habitus and oriented x3 HENMT: Common normals: normocephalic and head/scalp atraumatic Mouth: oral and palatal mucosa normal Eye: Sclera: sclerae normal Other: pallor+ Chest: Common normals: inspection of chest normal Respiratory: Common normals: normal respiratory effort Other: decreased AE at bases Cardio: Common normals: regular rate, regular rhythm and no murmurs GI: Common normals: Normal to inspection, nondistended, normoactive bowel sounds present Extremity: Common normals: no pedal edema Neuro: Common normals: oriented x3 and moves all extremities Results Lab Results Lab results: Most recent lab results Calcium 8.0 mg/dL (8.5-10.1) L 04/04/23 04:50 Magnesium 1.4 mg/dL (1.8-2.4) L 04/03/23 02:28 Assessment and Plan Assessment and Plan (1) Acute kidney injury: (2) Altered mental state: Qualifiers: Altered mental status type: disorientation Qualified Code(s): R41.0 - Disorientation, unspecified (3) Pancytopenia due to antineoplastic chemotherapy: (4) Tumor lysis syndrome following antineoplastic drug therapy: (5) Atrial fibrillation, new onset: (6) Generalized weakness: (7) Small cell lung cancer: Plan Labs and chart reviewed in detail. Likely WON is from progressive ATN following volume depletion Urine studies with moderate blood and 100 protein, no RBCs, need to rule out rhabdo given repeated falls-will check CKD Hyponatremia has resolved with IV fluids Renal function expected to improve to around baseline Cr of 2 mg/dL wtih supportive care, expect Cr to plateau in the next few days Continue RL @ 125 ml/hr, urine output 1-1.5 L is adequate Recheck uric acid in AM along with rpt urine studies Hold metformin and ozempic Continue metoprolol and hold amlodipine and losartan Total time spent 30 minutes, 9 mins on video.
--- NOTE | 2023-04-04 10:59 | PM.IMPN1 ---
Progress Note: A&P Assessment and Plan (1) Acute kidney injury: Assessment and Plan: Worsening Cr, but has good UO Renal US negative for obs Nephrology consulted. F/u their recs. (2) Altered mental state: Assessment and Plan: Resolved. Back to baseline. Negative CTH, MRI brain. Qualifiers: Altered mental status type: disorientation Qualified Code(s): R41.0 - Disorientation, unspecified (3) Pancytopenia due to antineoplastic chemotherapy: Assessment and Plan: Required one unit PRBC on 04/03/23 Monitor. No overt bleeding 2 Doses of neupogen ordered by Hemon for neutropenia (4) Tumor lysis syndrome following antineoplastic drug therapy: Assessment and Plan: Normal uric acid. On allopurinol. Cr continues to worsen but he has good UO. Awaiting nephrology recs. (5) Atrial fibrillation, new onset: Assessment and Plan: Revered to NSR. Not a good candidate for AC due to thrombocytopenia 2D ECHO Pending Lopressor 25 q12 (6) Generalized weakness: Assessment and Plan: Improving. PT/OT eval. 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 Follows Dr Pace as outpatient. Received one dose of chemotherapy a little over one week ago. Internal Medicine - PN: Subj Subjective Interval history: Seen and examined. Doing well. No active complaints to offer. Feels stronger and was able to walk in his room. Good UO but Cr is trending up Exam Constitutional Vital Signs, click to edit/add: Last Vital Signs Temp 97.9 F 04/04/23 07:55 Pulse 68 04/04/23 10:00 Resp 10 L 04/04/23 07:50 BP 115/57 04/04/23 07:47 Pulse Ox 97 04/04/23 04:10 O2 Del Method Room Air 04/03/23 20:01 Documenting provider has reviewed patient's vital signs: yes Common normals: no apparent distress and oriented x3 General appearance: cooperative HENDE Common normals: normocephalic and head/scalp atraumatic Head and scalp: normocephalic and atraumatic Eye Common normals: conjunctivae normal and no scleral icterus Conjunctiva: conjunctiva(e) normal Respiratory Common normals: normal respiratory effort and clear to auscultation bilaterally Effort & inspection: able to speak in complete sentences Auscultation: clear to auscultation bilaterally Cardio Common normals: regular rate, S1 normal heart sound and S2 normal heart sound Rate: regular rate Heart sounds: S1 normal and S2 normal GI Common normals: soft to palpation, non-tender and no hepatosplenomegaly Inspection: ostomy present Palpation: soft and no hepatosplenomegaly Extremity Common normals: no clubbing, cyanosis or edema Neuro Common normals: oriented x3, moves all extremities and no focal motor deficits Psych Common normals: mental status grossly normal, denies hallucinations, denies homicidal ideation and denies suicidal ideation Internal Medicine - PN: Obj Da Labs Labs: Laboratory Results - last 24 hr 04/03/23 04/03/23 04/03/23 02:28 04:15 10:11 WBC 1.5 L RBC 2.51 L Hgb 7.6 L Hct 22.7 L* MCV 90.4 MCH 30.3 MCHC 33.5 RDW 13.0 Plt Count 142 L MPV 10.5 Neut % (Auto) 15.8 L Lymph % (Auto) 45.4 [place] % (Auto) 34.2 H Eos % (Auto) 1.3 Baso % (Auto) 1.3 Neut # (Auto) 0.2 L Lymph # (Auto) 0.7 L [place] # (Auto) 0.5 Eos # (Auto) 0.0 Baso # (Auto) 0.0 Abs Immat Gran (auto) 0.03 Seg Neuts % (Manual) Lymphocytes % (Manual) Monocytes % (Manual) Eosinophils % (Manual) Basophils % (Manual) Imm/Tot Granulo (auto) 2.0 H Neutrophils # (Manual) Lymphocytes # (Manual) Monocytes # (Manual) Eosinophils # (Manual) Basophils # (Manual) Haptoglobin 525 H Sodium Potassium Chloride Carbon Dioxide Anion Gap BUN Creatinine Est GFR ( Amer) Est GFR (Non-Af Amer) BUN/Creatinine Ratio Glucose Uric Acid 4.6 Calcium Total Bilirubin AST ALT Alkaline Phosphatase Total Protein Albumin Globulin Albumin/Globulin Ratio Folate >20.0 Ur Random Creatinine 42.81 Ur Random Sodium 48 POC Glucose Blood Type O Negative Antibody Screen Negative Crossmatch See Detail 04/03/23 04/03/23 04/03/23 11:58 16:33 20:13 WBC RBC Hgb 8.8 L Hct 27.0 L MCV MCH MCHC RDW Plt Count MPV Neut % (Auto) Lymph % (Auto) [place] % (Auto) Eos % (Auto) Baso % (Auto) Neut # (Auto) Lymph # (Auto) [place] # (Auto) Eos # (Auto) Baso # (Auto) Abs Immat Gran (auto) Seg Neuts % (Manual) Lymphocytes % (Manual) Monocytes % (Manual) Eosinophils % (Manual) Basophils % (Manual) Imm/Tot Granulo (auto) Neutrophils # (Manual) Lymphocytes # (Manual) Monocytes # (Manual) Eosinophils # (Manual) Basophils # (Manual) Haptoglobin Sodium Potassium Chloride Carbon Dioxide Anion Gap BUN Creatinine Est GFR ( Amer) Est GFR (Non-Af Amer) BUN/Creatinine Ratio Glucose Uric Acid Calcium Total Bilirubin AST ALT Alkaline Phosphatase Total Protein Albumin Globulin Albumin/Globulin Ratio Folate Ur Random Creatinine Ur Random Sodium POC Glucose 193 H 206 H Blood Type Antibody Screen Crossmatch 04/03/23 04/04/23 04/04/23 21:20 04:50 07:50 WBC 1.7 L RBC 2.87 L Hgb 8.2 L Hct 25.2 L MCV 87.8 MCH 28.6 MCHC 32.5 RDW 15.0 Plt Count 154 MPV 10.4 Neut % (Auto) Lymph % (Auto) [place] % (Auto) Eos % (Auto) Baso % (Auto) Neut # (Auto) Lymph # (Auto) [place] # (Auto) Eos # (Auto) Baso # (Auto) Abs Immat Gran (auto) Seg Neuts % (Manual) 26.0 Lymphocytes % (Manual) 54.0 Monocytes % (Manual) 18.0 H Eosinophils % (Manual) 2.0 Basophils % (Manual) 0.0 L Imm/Tot Granulo (auto) Neutrophils # (Manual) 0.44 L Lymphocytes # (Manual) 0.91 L Monocytes # (Manual) 0.30 Eosinophils # (Manual) 0.03 Basophils # (Manual) 0.00 Haptoglobin Sodium 137 Potassium 3.7 Chloride 106 Carbon Dioxide 20.2 L Anion Gap 14.5 BUN 28.0 H Creatinine 3.00 H Est GFR ( Amer) 25 L Est GFR (Non-Af Amer) 21 L BUN/Creatinine Ratio 9.3 Glucose 144 H Uric Acid Calcium 8.0 L Total Bilirubin 0.6 AST 47 H ALT 51 Alkaline Phosphatase 54 Total Protein 6.4 Albumin 1.9 L Globulin 4.5 Albumin/Globulin Ratio 0.4 Folate Ur Random Creatinine Ur Random Sodium POC Glucose 259 H 161 H Blood Type Antibody Screen Crossmatch Urinary Catheter Management Urinary Catheter Management Urethral: Cath placed during this visit: no
[2023-04-04 11:33] LABS: Creatine Kinase 21 U/L (39-308)
--- NOTE | 2023-04-04 11:36 | PT.DAILY ---
Physical Therapy Daily Note PT Daily Note/Assess Start: 04/04/23 11:31 Freq: Status: Active Protocol: Document 04/04/23 11:31 MARUABBYQUIRINOJERMAINE (Rec: 04/04/23 11:36 MARUABBYJOSELITO [id number]) Physical Therapy Daily Note/Assessment Time In/Time Out Time In 10:36 Time Out 11:00 Pain In Pain N/A Pain Out Pain N/A Subjective Subjective Pt sitting in BS chair upon arrival. Agrees to PT. Denies pain currently. Had a rough night but did not explain why. Therapeutic Exercise Time Therapeutic Exercise Minutes (minutes) 13 Therapeutic Exercise Units 1 Therapeutic Exercise Treatment Therapeutic Exercise Treatment Pt completes seated AP, LAQ, marches and add squeezes 10x ea. Standing ex complete at RW HR, marches, HS curls, hip flex and abduction, and mini squats 10x. Slow pace for these requiring extra time. Therapeutic Activity Time Therapeutic Activity Minutes (minutes) 10 Therapeutic Activity Units 1 Therapeutic Activity Treatment Chair Transfer Ability Standby Assistance Therapeutic Activity Comments Sit>stand from BS chair needs 3x attempts but SBA. Pt amb in hollis 200' with RW, SBA with assist for IV pole. Static standing at end of hollis 2 min to have conversation - no LOB. Pt returned to room in BS chair upon completion with call light in reach and needs met. Family present at this time. Total Physical Therapy Time Total Therapy Minutes 23 Total Physical Therapy Units 2 Summary Daily Note Summary Improved gait endurance and ability.
[2023-04-04 11:37] LABS: Glucometer 235 mg/dL (74-106)
[2023-04-04 11:51] LABS: Bilirubin Urine NEGATIVE (NEGATIVE); Blood Urine MODERATE (NEGATIVE); Clarity Urine CLEAR (CLEAR); Color Urine LT. YELLOW (YELLOW); Glucose Urine UA 250 mg/dL (NEGATIVE); Ketones Urine NEGATIVE (NEGATIVE); Leukocyte Esterase Urine MODERATE (NEGATIVE); Nitrite Urine NEGATIVE (NEGATIVE); Protein Urine 30 mg/dL (NEG/TRACE); Urobilinogen Urine 0.2 EU/dL (0.2-1.0)
--- NOTE | 2023-04-04 11:52 | CM.NOTE ---
Rounds made with Dr. High, no discharge for pt today. Possible discharge tomorrow. Pt does plan on moving in with daughter towards [facility]. Pt in agreement to services.
[2023-04-04 11:59] LABS: Creatinine Urine Random 64.19 mg/dL (20.00-300.00); Microalbum Creatinine Ratio Ur 165.1 mg/g (0.0-29.9); Microalbumin Urine Random 10.6 mg/dL (<=30.0); Total Protein Urine Random 96.4 mg/dL (<=11.9)
[2023-04-04 12:23] LABS: Urine Microscopic Indicated YES
[2023-04-04 12:24] LABS: Bacteria Urine MODERATE #/HPF (NONE SEEN); Cast Seen? NONE SEEN #/LPF (NONE SEEN); Crystals Seen? None Seen #/HPF (None Seen); Mucus Urine NONE SEEN (NONE SEEN); Squamous Epithelial Cell Urine RARE #/LPF (NONE/RARE); Urine Culture Indicated YES; WBC Urine 20-50 #/HPF (NONE SEEN)
[2023-04-04] MEDS: INSULIN ASPART 300 UNIT/3 ML PEN SUBQ ×2 (12:34→21:37)
--- NOTE | 2023-04-04 13:56 | SWNOTE1 ---
TIFFANIE spoke with pt and family and pt have decided pt is going to move in with his daughter down by [place] for a short time until he gets stronger. It is not permanent and someone will be watching over his home. His son in law will drive him to his appointments at [facility] for follow up. SW and pt spoke about home health for a short time and he does still want this. TIFFANIE did not receive call back from [place]. SW called again and left message. SW to search for [employer] around where daughter lives. Pt's son in room when SW came back and he is going to reach out to daughter for her address, SW to check back in a little bit.
--- NOTE | 2023-04-04 14:34 | SWNOTE1 ---
SW went back in room and did get address for pt's daughter and will attempt to set up home health at discharge.
--- NOTE | 2023-04-04 15:09 | SWNOTE1 ---
[facility] clinic did call SW back and they do think they would be able to offer services in the area of [place] where daughter lives. SW did send the [facility] clinical information and they will need to have final orders and dc date so they can try to line up care around the time he is discharged. TIFFANIE updated patient.
[2023-04-04] MEDS: ACETAMINOPHEN 325 MG TABLET 650 MG PO ×2 (16:35→21:35)
[2023-04-04 16:39] LABS: Glucometer 192 mg/dL (74-106)
--- NOTE | 2023-04-04 19:01 | US_ITS ---
The [address] [address] Patient Name: CINDY SOTELO MRN: [id number] date: 1950 Sex: M Assigned Patient Location: ICU Current Patient Location: ICU Accession/Order Number: [id number] Exam Date: 04/04/2023 19:02 Report Date: 04/04/2023 20:04 At the request of: SANTI HAWKINS Procedure: US aorta EXAM: ULTRASOUND AORTA HISTORY: Concern for aortic aneurysm in a 72-year-old male COMPARISON: None available. TECHNIQUE: Multiple sonographic images are taken of the aorta using both grayscale and color Doppler. FINDINGS: Aorta: The proximal aorta measures 1.6 x 2.4 cm. The mid aorta measures: 1.4 x 1.8 x 1.9 cm. The distal aorta measures: 2.6 x 1.6 x 1.5 cm. Common Iliac arteries: Right common iliac measures: 1.3 x 2.1 cm. Left common iliac measures: 2.0 x 2.3 cm. IVC: The IVC is not visualized. There is no abdominal aortic aneurysm, within the visualized field of view, allowing for the limitation of overlying bowel gas. US/US aorta IMPRESSION: No evidence of abdominal aortic aneurysm. AAA Surveillance Management AAA Size: Follow-up Recommendation 2.6-2.9 cm Every 5 years 3.0-3.4 cm Every 3 years 3.5-3.9 cm Every 12 months 4.0-4.4 cm Every 12 months, vascular consultation recommended 4.5-5.4 cm Every 6 months, vascular consultation recommended >5.5 cm Referral to vascular surgeon recommended Based upon the Society for Vascular Surgery Guidelines: 1. J Vasc Surg. 2009 Oct;50(4 Suppl):S2-49 2. For aortas of maximum diameter of 2.6-2.9 cm meeting the criteria for AAA(>=1.5 x proximal normal segment) Electronically authenticated by: DELFINA NIELSON Date: 04/04/2023 20:04
[2023-04-04 19:45] LABS: Hematocrit 27.8 % (42.0-54.0); Mean Corpuscular HGB Conc 32.4 g/dL (29.9-35.2); Mean Corpuscular Hemoglobin 28.6 pg (25.9-34.0); Mean Corpuscular Volume 88.3 fL (80.0-94.0); Mean Platelet Volume 10.3 fL (9.5-13.5); Platelet Count 169 10^3/uL (150-450); Red Blood Count 3.15 10^6/uL (4.70-6.10); Red Cell Distribution Width 15.1 % (11.0-15.0); White Blood Count 3.6 10^3/uL (4.0-11.0)
[2023-04-04 20:02] LABS: Alanine Aminotransferase 86 U/L (16-63); Albumin Globulin Ratio 0.4; Albumin Level 1.9 g/dL (3.4-5.0); Alkaline Phosphatase 75 U/L (46-116); Anion Gap 14.9; Aspartate Amino Transferase 95 U/L (15-37); BUN Creatinine Ratio 9.9; Bilirubin Total 0.4 mg/dL (0.2-1.0); Calcium 8.1 mg/dL (8.5-10.1); Chloride 106 mmol/L (98-107); Estimated GFR (African America 26 (>=60); Estimated GFR (Non-African Ame 21 (>=60); Globulin 4.6 g/dL; Glucose 154 mg/dL (74-106); Potassium 3.9 mmol/L (3.5-5.1); Sodium 138 mmol/L (136-145); Total Protein 6.5 g/dL (6.4-8.2)
[2023-04-04 20:03] LABS: Segmented Neut Absolute Manual 2.34 10^3/uL (1.4-6.5)
[2023-04-04 20:04] LABS: Atypical Lymphocytes Abs Man 0.2; Band Neutrophils Absolute 0.1 10^3/uL (0.0-0.3); Basophils Abs Manual 0.03 10^3/uL (0.00-0.10); Lymphocytes Absolute Manual 0.79 10^3/uL (1.20-3.80); Monocytes Absolute Manual 0.18 10^3/uL (0.30-0.80); Toxic Granulation 1+
[2023-04-04 20:07] LABS: Lactate/Lactic Acid 1.1 mmol/L (0.4-2.0)
[2023-04-04] MEDS: TAMSULOSIN HCL 0.4 MG CAPSULE 0.8 MG PO (21:36)
[2023-04-04] MEDS: INSULIN DETEMIR 300 UNIT/3 ML INSULN.PEN 10 UNIT SUBQ (21:38)
[2023-04-04 21:48] LABS: Glucometer 143 mg/dL (74-106)
[2023-04-05] VITALS (113 sets, daily range): BP systolic 106–138; BP diastolic 55–73; PULSE 52–93; RESP 0–26; TEMP 36.3–36.7; O2SAT 90–99
[2023-04-05] MEDS: LACTATED RINGER'S SOLUTION 1,000 ML 125 ML IV (03:06)
[2023-04-05 05:41] LABS: Basophils Percent Auto 0.7 % (0.2-2.0); Eosinophils Percent Auto 0.4 % (0.9-7.0); Hematocrit 26.3 % (42.0-54.0); Hemoglobin 8.5 g/dL (14.0-18.0); Immature Granulocytes Pct Auto 9.3 % (0.0-0.5); Lymphocytes Absolute Auto 0.9 10^3/uL (1.2-3.8); Lymphocytes Percent Auto 17.5 % (20.5-60.0); Mean Corpuscular HGB Conc 32.3 g/dL (29.9-35.2); Mean Corpuscular Hemoglobin 28.5 pg (25.9-34.0); Mean Corpuscular Volume 88.3 fL (80.0-94.0); Mean Platelet Volume 10.4 fL (9.5-13.5); Monocytes Absolute Auto 0.6 10^3/uL (0.3-0.8); Monocytes Percent Auto 11.9 % (1.7-12.0); Neutrophils Absolute Auto 3.2 10^3/uL (1.4-6.5); Neutrophils Percent Auto 60.2 % (43.0-75.0); Platelet Count 185 10^3/uL (150-450); Red Blood Count 2.98 10^6/uL (4.70-6.10); Red Cell Distribution Width 14.9 % (11.0-15.0); White Blood Count 5.4 10^3/uL (4.0-11.0)
[2023-04-05 06:12] LABS: Alanine Aminotransferase 71 U/L (16-63); Albumin Globulin Ratio 0.4; Albumin Level 1.7 g/dL (3.4-5.0); Alkaline Phosphatase 66 U/L (46-116); Anion Gap 13.3; Aspartate Amino Transferase 62 U/L (15-37); BUN Creatinine Ratio 9.9; Bilirubin Total 0.4 mg/dL (0.2-1.0); Carbon Dioxide 20.3 mmol/L (21.0-32.0); Chloride 109 mmol/L (98-107); Estimated GFR (African America 28 (>=60); Estimated GFR (Non-African Ame 23 (>=60); Globulin 4.2 g/dL; Glucose 90 mg/dL (74-106); Potassium 3.6 mmol/L (3.5-5.1); Sodium 139 mmol/L (136-145); Total Protein 5.9 g/dL (6.4-8.2)
[2023-04-05 06:13] LABS: Uric Acid 4.3 mg/dL (3.5-7.2)
[2023-04-05 07:33] LABS: Glucometer 93 mg/dL (74-106)
[2023-04-05] MEDS: METOPROLOL TARTRATE 25 MG TABLET PO ×2 (08:49→21:42)
[2023-04-05] MEDS: CHOLECALCIFEROL (VITAMIN D3) 25 MCG/1,000 UNITS TABLET 50 MCG PO (08:49)
[2023-04-05] MEDS: ALLOPURINOL 100 MG TABLET PO (08:49)
[2023-04-05] MEDS: ATORVASTATIN CALCIUM 40 MG TABLET PO (08:49)
[2023-04-05] MEDS: FERROUS SULFATE 325 MG TABLET PO (08:49)
[2023-04-05] MEDS: FILGRASTIM 480 MCG/0.8 ML SYRINGE SUBQ (08:50)
--- NOTE | 2023-04-05 10:25 | PM.NEPPN ---
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 Bili normal, lima in -Renal function improving, expect to reach around baseline of 2 mg/dL in a few days -Continue allopurinol and rasburicase as indicated for prevention of tumor lysis -Hold metformin and ozempic. Would switch metformin to alternate oral hypoglycemic agent in pt with CKD at risk for recurrent WON from chemo --Continue metoprolol and hold amlodipine and losartan -Cut down IV fluids, ringer lactate to 75 ml/hr, encouraged oral intake Total time spent 17 mins, 5 min on video, please contact me if any qns. Subjective Subjective Interval history: Doing okay, did not have breakfast but says appetite fair. Asking about when he is going home. On RA, no dyspnea, chest pain or palpitations. No nausea, vomiting, diarrhea, 1.5 L urine output documented yday, possibly made more which was not documented. All other systems reviewed and negative. Exam Narrative: Exam Narrative: GA-appears stated age, not in distress HEENT-Head atraumatic, normocephalic, no icterus, pallor+ Chest-Air entry bilaterally equal, decreased at bases no adventitious sounds Heart-normal heart sounds, regular, no murmurs Abd-soft, distended Neuro-AAO x 3 no focal deficits Ext-no edema Skin-no visible rashes Constitutional: Vital Signs, click to edit/add: Last Vital Signs Temp 97.5 F L 04/05/23 07:29 Pulse 54 L 04/05/23 10:00 Resp 14 04/05/23 07:32 BP 106/55 04/05/23 07:32 Pulse Ox 99 04/05/23 03:10 O2 Del Method Room Air 04/04/23 20:20 Urinary Catheter Management Urinary Catheter Management Urethral: Cath placed during this visit: no
--- NOTE | 2023-04-05 10:31 | PM.IMPN1 ---
Progress Note: A&P Assessment and Plan (1) Acute kidney injury: Assessment and Plan: Good UO, Cr slowly improving. C/w IV hdration. Monitor UO. (2) Altered mental state: Assessment and Plan: Resolved. Back to baseline. Negative CTH, MRI brain. Qualifiers: Altered mental status type: disorientation Qualified Code(s): R41.0 - Disorientation, unspecified (3) Pancytopenia due to antineoplastic chemotherapy: Assessment and Plan: Required one unit PRBC on 04/03/23 -HB stable Monitor. No overt bleeding 2 Doses of neupogen ordered by Hemon[facility] for neutropenia (4) Tumor lysis syndrome following antineoplastic drug therapy: Assessment and Plan: Normal uric acid. On allopurinol. Good UO. Cr slowly improving (5) Atrial fibrillation, new onset: Assessment and Plan: Revered to NSR. Not a good candidate for AC due to thrombocytopenia 2D ECHO report is pending Lopressor 25 q12 (6) Generalized weakness: Assessment and Plan: Improving. PT/OT eval. 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 Follows Dr Pace as outpatient. . Plan Monitoring renal function. C/w IVF - possible d/c tomorrow if Cr sufficiently trended down tomorrow., Internal Medicine - PN: Subj Subjective Interval history: Seen and examined. Doing well. No events. Exam Constitutional Vital Signs, click to edit/add: Last Vital Signs Temp 97.5 F L 04/05/23 07:29 Pulse 54 L 04/05/23 10:00 Resp 14 04/05/23 07:32 BP 106/55 04/05/23 07:32 Pulse Ox 99 04/05/23 03:10 O2 Del Method Room Air 04/04/23 20:20 Documenting provider has reviewed patient's vital signs: yes Common normals: no apparent distress and oriented x3 General appearance: cooperative HENMT Common normals: normocephalic and head/scalp atraumatic Head and scalp: normocephalic and atraumatic Eye Common normals: conjunctivae normal and no scleral icterus Conjunctiva: conjunctiva(e) normal Respiratory Common normals: normal respiratory effort and clear to auscultation bilaterally Effort & inspection: able to speak in complete sentences Auscultation: clear to auscultation bilaterally Cardio Common normals: regular rate, S1 normal heart sound and S2 normal heart sound Rate: regular rate Heart sounds: S1 normal and S2 normal GI Common normals: soft to palpation, non-tender and no hepatosplenomegaly Inspection: ostomy present Palpation: soft and no hepatosplenomegaly Extremity Common normals: no clubbing, cyanosis or edema Neuro Common normals: oriented x3, moves all extremities and no focal motor deficits Psych Common normals: mental status grossly normal, denies hallucinations, denies homicidal ideation and denies suicidal ideation Internal Medicine - PN: Obj Da Labs Labs: Laboratory Results - last 24 hr 04/03/23 04/04/23 04/04/23 10:11 04:50 11:26 WBC RBC Hgb Hct MCV MCH MCHC RDW Plt Count MPV Neut % (Auto) Lymph % (Auto) [place] % (Auto) Eos % (Auto) Baso % (Auto) Neut # (Auto) Lymph # (Auto) [place] # (Auto) Eos # (Auto) Baso # (Auto) Abs Immat Gran (auto) Seg Neuts % (Manual) Band Neutrophils % Lymphocytes % (Manual) Atypical Lymphs % (Man) Monocytes % (Manual) Eosinophils % (Manual) Basophils % (Manual) Imm/Tot Granulo (auto) Neutrophils # (Manual) Band Neutrophils # Lymphocytes # (Manual) Abs Atypical Lymphs Man Monocytes # (Manual) Eosinophils # (Manual) Basophils # (Manual) Toxic Granulation Sodium Potassium Chloride Carbon Dioxide Anion Gap BUN Creatinine Est GFR ( Amer) Est GFR (Non-Af Amer) BUN/Creatinine Ratio Glucose Lactate Uric Acid Calcium Total Bilirubin AST ALT Alkaline Phosphatase Total Creatine Kinase 21 L Total Protein Albumin Globulin Albumin/Globulin Ratio Lipase Urine Color Urine Clarity Urine pH Ur Specific [place] Urine Protein Urine Glucose (UA) Urine Ketones Urine Occult Blood Urine Nitrite Urine Bilirubin Urine Urobilinogen Ur Leukocyte Esterase Urine RBC Urine WBC Ur Squamous Epith Cells Urine Crystals Urine Bacteria Urine Casts Urine Mucus Ur Culture Indicated? Ur Random Creatinine Ur Random Microalbumin U Random Total Protein Microalb/Creat Ratio Protein/Creatinin Ratio POC Glucose 235 H Crossmatch See Detail 04/04/23 04/04/23 04/04/23 11:30 16:37 19:40 WBC 3.6 L RBC 3.15 L Hgb 9.0 L Hct 27.8 L MCV 88.3 MCH 28.6 MCHC 32.4 RDW 15.1 H Plt Count 169 MPV 10.3 Neut % (Auto) Lymph % (Auto) [place] % (Auto) Eos % (Auto) Baso % (Auto) Neut # (Auto) Lymph # (Auto) [place] # (Auto) Eos # (Auto) Baso # (Auto) Abs Immat Gran (auto) Seg Neuts % (Manual) 65.0 Band Neutrophils % 2.0 Lymphocytes % (Manual) 22.0 Atypical Lymphs % (Man) 5.0 Monocytes % (Manual) 5.0 Eosinophils % (Manual) 0.0 L Basophils % (Manual) 1.0 Imm/Tot Granulo (auto) Neutrophils # (Manual) 2.34 Band Neutrophils # 0.1 Lymphocytes # (Manual) 0.79 L Abs Atypical Lymphs Man 0.2 Monocytes # (Manual) 0.18 L Eosinophils # (Manual) 0.00 Basophils # (Manual) 0.03 Toxic Granulation 1+ Sodium 138 Potassium 3.9 Chloride 106 Carbon Dioxide 21.0 Anion Gap 14.9 BUN 29.0 H Creatinine 2.93 H Est GFR ( Amer) 26 L Est GFR (Non-Af Amer) 21 L BUN/Creatinine Ratio 9.9 Glucose 154 H Lactate 1.1 Uric Acid Calcium 8.1 L Total Bilirubin 0.4 AST 95 H ALT 86 H Alkaline Phosphatase 75 Total Creatine Kinase Total Protein 6.5 Albumin 1.9 L Globulin 4.6 Albumin/Globulin Ratio 0.4 Lipase 275.0 Urine Color Lt. yellow Urine Clarity Clear Urine pH 6.0 Ur Specific [place] 1.010 Urine Protein 30 A Urine Glucose (UA) 250 A Urine Ketones Negative Urine Occult Blood Moderate A Urine Nitrite Negative Urine Bilirubin Negative Urine Urobilinogen 0.2 Ur Leukocyte Esterase Moderate A Urine RBC 2-5 A Urine WBC 20-50 A Ur Squamous Epith Cells Rare Urine Crystals None seen Urine Bacteria Moderate A Urine Casts None seen Urine Mucus None seen Ur Culture Indicated? Yes Ur Random Creatinine 64.19 Ur Random Microalbumin 10.6 U Random Total Protein 96.4 H Microalb/Creat Ratio 165.1 H Protein/Creatinin Ratio 1.50 POC Glucose 192 H Crossmatch 04/04/23 04/05/23 04/05/23 21:34 05:05 07:30 WBC 5.4 RBC 2.98 L Hgb 8.5 L Hct 26.3 L MCV 88.3 MCH 28.5 MCHC 32.3 RDW 14.9 Plt Count 185 MPV 10.4 Neut % (Auto) 60.2 Lymph % (Auto) 17.5 L [place] % (Auto) 11.9 Eos % (Auto) 0.4 L Baso % (Auto) 0.7 Neut # (Auto) 3.2 Lymph # (Auto) 0.9 L [place] # (Auto) 0.6 Eos # (Auto) 0.0 Baso # (Auto) 0.0 Abs Immat Gran (auto) 0.50 H Seg Neuts % (Manual) Band Neutrophils % Lymphocytes % (Manual) Atypical Lymphs % (Man) Monocytes % (Manual) Eosinophils % (Manual) Basophils % (Manual) Imm/Tot Granulo (auto) 9.3 H Neutrophils # (Manual) Band Neutrophils # Lymphocytes # (Manual) Abs Atypical Lymphs Man Monocytes # (Manual) Eosinophils # (Manual) Basophils # (Manual) Toxic Granulation Sodium 139 Potassium 3.6 Chloride 109 H Carbon Dioxide 20.3 L Anion Gap 13.3 BUN 27.0 H Creatinine 2.72 H Est GFR ( Amer) 28 L Est GFR (Non-Af Amer) 23 L BUN/Creatinine Ratio 9.9 Glucose 90 Lactate Uric Acid 4.3 Calcium 8.0 L Total Bilirubin 0.4 AST 62 H ALT 71 H Alkaline Phosphatase 66 Total Creatine Kinase Total Protein 5.9 L Albumin 1.7 L Globulin 4.2 Albumin/Globulin Ratio 0.4 Lipase Urine Color Urine Clarity Urine pH Ur Specific [place] Urine Protein Urine Glucose (UA) Urine Ketones Urine Occult Blood Urine Nitrite Urine Bilirubin Urine Urobilinogen Ur Leukocyte Esterase Urine RBC Urine WBC Ur Squamous Epith Cells Urine Crystals Urine Bacteria Urine Casts Urine Mucus Ur Culture Indicated? Ur Random Creatinine Ur Random Microalbumin U Random Total Protein Microalb/Creat Ratio Protein/Creatinin Ratio POC Glucose 143 H 93 Crossmatch Urinary Catheter Management Urinary Catheter Management Urethral: Cath placed during this visit: no
--- NOTE | 2023-04-05 10:55 | SWNOTE1 ---
SW spoke to Dave from [facility] and they are able to provide PT/OT and skilled nurse at daughter's home, they will need name and number for daughter. SW to speak with pt.
[2023-04-05] MEDS: LACTATED RINGER'S SOLUTION 1,000 ML 75 ML IV ×2 (11:34→23:00)
--- NOTE | 2023-04-05 11:36 | CM.NOTE ---
Rounds made with Dr. High, no discharge today. Nephrology will follow again today for any further recommendations. Possible discharge tomorrow if kidney function shows improvement.
--- NOTE | 2023-04-05 12:02 | REH.PTDLY ---
Physical Therapy Daily Note PT Daily Note/Assess Start: 04/04/23 11:31 Freq: Status: Active Protocol: Document 04/05/23 11:56 ARIANADARIENMARGARITA (Rec: 04/05/23 12:02 KWAKU [id number]) Physical Therapy Daily Note/Assessment Time In 10:15 Time Out 10:40 Subjective No new complaints, has to stay another day as kidney function isn't where it should be. Therapeutic Exercise Minutes (minutes) 9 Therapeutic Exercise Units 1 Therapeutic Exercise Treatment Standing B LE exs with B UE support at RW 15-20x ea for improved strength. Exs including HR, marches, mini squats, hip flex, hip ext, HS curl Therapeutic Activity Minutes (minutes) 14 Therapeutic Activity Units 1 Therapeutic Activity Comments SBA with supine to sit transfers. Sit to stand transfers SBA. Gait training with RW 450 feet SBA. Pt states he has rollator at home that he usually uses. Pt has 1 instance of unsteadiness while ambulating due to RW wanting to pull to the R and pt having to readjust. No LOB and able to self correct. Total Therapy Minutes 23 Total Physical Therapy Units 2 Daily Note Summary Progression with gait distance and reps with exs. Pt states he usually uses nothing or SC at home with gait, but recently has been using RW more. Trial SC tomorrow and probably DC from PT as pt is doing well overall.
[2023-04-05 13:11] LABS: Procalcitonin 0.35 ng/mL (0.00-0.08)
--- NOTE | 2023-04-05 14:17 | SWNOTE1 ---
SW spoke with pt and he was able to give SW his daughter's phone number. [facility] and left message for nurse.
[2023-04-05 16:27] LABS: Glucometer 140 mg/dL (74-106)
[2023-04-05] MEDS: TAMSULOSIN HCL 0.4 MG CAPSULE 0.8 MG PO (21:42)
[2023-04-05 21:47] LABS: Glucometer 159 mg/dL (74-106)
[2023-04-05] MEDS: INSULIN DETEMIR 300 UNIT/3 ML INSULN.PEN 10 UNIT SUBQ (21:47)
[2023-04-05] MEDS: INSULIN ASPART 300 UNIT/3 ML PEN SUBQ (21:48)
[2023-04-06] VITALS (7 sets, daily range): BP systolic 138; BP diastolic 70; PULSE 57–67; RESP 16; O2SAT 98
[2023-04-06 05:22] LABS: Hematocrit 26.7 % (42.0-54.0); Hemoglobin 8.5 g/dL (14.0-18.0); Mean Corpuscular HGB Conc 31.8 g/dL (29.9-35.2); Mean Corpuscular Hemoglobin 28.3 pg (25.9-34.0); Mean Platelet Volume 10.2 fL (9.5-13.5); Platelet Count 257 10^3/uL (150-450); White Blood Count 15.3 10^3/uL (4.0-11.0)
[2023-04-06 05:46] LABS: Alanine Aminotransferase 61 U/L (16-63); Albumin Globulin Ratio 0.4; Albumin Level 1.7 g/dL (3.4-5.0); Alkaline Phosphatase 84 U/L (46-116); Anion Gap 12.8; Aspartate Amino Transferase 45 U/L (15-37); Bilirubin Total 0.2 mg/dL (0.2-1.0); Calcium 8.1 mg/dL (8.5-10.1); Chloride 109 mmol/L (98-107); Estimated GFR (African America 31 (>=60); Estimated GFR (Non-African Ame 25 (>=60); Globulin 4.1 g/dL; Glucose 139 mg/dL (74-106); Potassium 3.8 mmol/L (3.5-5.1); Sodium 140 mmol/L (136-145); Total Protein 5.8 g/dL (6.4-8.2)
[2023-04-06 05:56] LABS: Atypical Lymphocytes Abs Man 1.1; Band Neutrophils Absolute 4.1 10^3/uL (0.0-0.3); Lymphocytes Absolute Manual 0.91 10^3/uL (1.20-3.80); Monocytes Absolute Manual 1.83 10^3/uL (0.30-0.80); Nucleated Red Blood Cells 2; Segmented Neut Absolute Manual 7.34 10^3/uL (1.4-6.5)
[2023-04-06 05:57] LABS: Anisocytosis 3+; Hypochromasia 3+; Poikilocytosis 3+
[2023-04-06] MEDS: ATORVASTATIN CALCIUM 40 MG TABLET PO (09:06)
[2023-04-06] MEDS: FERROUS SULFATE 325 MG TABLET PO (09:06)
[2023-04-06] MEDS: METOPROLOL TARTRATE 25 MG TABLET PO (09:06)
[2023-04-06] MEDS: CHOLECALCIFEROL (VITAMIN D3) 25 MCG/1,000 UNITS TABLET 50 MCG PO (09:06)
[2023-04-06] MEDS: ALLOPURINOL 100 MG TABLET PO (09:06)
--- NOTE | 2023-04-06 11:15 | PT.DAILY ---
Physical Therapy Daily Note PT Daily Note/Assess Start: 04/04/23 11:31 Freq: Status: Active Protocol: Document 04/06/23 11:13 WEN (Rec: 04/06/23 11:15 WEN [id number]) Physical Therapy Daily Note/Assessment Time In/Time Out Time In 09:30 Time Out 09:45 Pain In Pain N/A Pain Out Pain N/A Subjective Subjective Pt supine upon arrival. Agrees to PT. Planned dc for later today. Therapeutic Exercise Time Therapeutic Exercise Minutes (minutes) 5 Therapeutic Exercise Units 0 Therapeutic Exercise Treatment Therapeutic Exercise Treatment Standing ther ex complete at RW for stability. HR, marches, hip flex/abd, mini squats 10x ea. Therapeutic Activity Time Therapeutic Activity Minutes (minutes) 8 Therapeutic Activity Units 1 Therapeutic Activity Treatment Bed Mobility Ability Modified Independent Chair Transfer Ability Modified Independent Therapeutic Activity Comments Supine>sit MORENO due to IV lines. Pt sit>stand MORENO due to IV lines. Pt amb 300' in hollis SUP with RW and assistance needed for IV pole. Total Physical Therapy Time Total Therapy Minutes 13 Total Physical Therapy Units 1 Summary Daily Note Summary Improved gait endurance and transfer ability.
--- NOTE | 2023-04-06 11:39 | CM.NOTE ---
Rounds made with zhane Holland for pt to discharge to home. Pt given outpatient rec for repeat Chem 8 to be drawn next week. Pt also will discharge with HH.
--- NOTE | 2023-04-06 12:14 | SWNOTE1 ---
Pt is being discharged today, [facility] TIFFANIE spoke with pt and family in room and let them know SW is [facility] to [facility] for [facility] and they will be reaching out.
--- NOTE | 2023-04-06 12:35 | P.DS_ITS ---
DS: Providers Provider Date of admission: 04/03/23 07:51 Primary care physician: Non-Staff PhysicianMD Consults: 04/03/23 Consult to Dietitian Routine Reason For Exam: poor appetite,DM,CA Reason for consultation: Diabetic Has provider been notified: No Consult to Video Control Operator Routine Has provider been notified: No Reason for consult:: Home Health 04/03/23 01:16 Consult to Video Control Operator Routine Reason for consult:: Durable Medical Equipment 04/03/23 01:56 Physical Therapy Eval and Treat Routine Reason for consultation: falls Has provider been notified: Yes 04/03/23 07:52 Occupational Therapy Eval and Treat Routine Reason for consultation: generalized weakness Physical Therapy Eval and Treat Routine Reason for consultation: generalized weakness 04/03/23 09:50 Occupational Therapy Eval and Treat Routine Reason for consultation: WEAKNESS 04/03/23 09:51 Physical Therapy Eval and Treat Routine Reason for consultation: WEAKNESS 04/03/23 09:52 Consult to Oncology Routine Consulting Provider: Celeste Peña Reason for consultation: Metstatic lung cancer Has provider been notified: Yes 04/04/23 06:41 Consult to Telenephrology Routine Consulting Provider: SONI METZGER Reason for consultation: ATN/WON Has provider been notified: No Attending physician on discharge: Shaikh Lennox Discharging clinician: Shaikh Lennox Anticipated date of discharge: 04/06/23 DS: Diagnosis Discharge Diagnosis (1) Acute kidney injury: Assessment and plan: Good UO. Creatinine slowly trending down. Hold Losartan and metformin as outpatient. Will need BMP in one week. Script given to patient. (2) Altered mental state: Assessment and plan: Resolved. likely sec to Dehydration. Normal CTH/MRI brain Qualifiers: Altered mental status type: disorientation Qualified Code(s): R41.0 - Disorientation, unspecified (3) Urinary tract infection due to Pseudomonas aeruginosa: Assessment and plan: Abnormal UA, Urine cx positive for Pseudomonas. However, never reported any urinary symptoms. I would regardless treat it considering his immunocompromised status and will d/c on oral Levaquin x 7 days that is renally dose. (4) Pancytopenia due to antineoplastic chemotherapy: Assessment and plan: Received 2 doses of Neupogen and one unit PRBC. Hb is stable. WBC is also acceptable. Outpatient f/u with Oncology for continued monitoring and/or treatment as clinically indicated. (5) Tumor lysis syndrome following antineoplastic drug therapy: Assessment and plan: C/w Allopurinol. (6) Atrial fibrillation, new onset: Assessment and plan: Reverted to NSR. Added Lopressor for Afib. Not a good candidate for stroke px given his thrombocytopenia. 2D ECHO shows normal EF, no valvular pathology, LVH but no diastolic dysfunction Will need outpatient f/u with Cardiology (7) Generalized weakness: Assessment and plan: Improved. Walking w/o needing help and using a walker only. Received PT/OT while in patient. (8) Small cell lung cancer: Assessment and plan: Follows Dr Alonso. Will need to call her office and schedule a f/u as he was scheduled for second dose of chemo this week. DS: Summary Hospital Course Hospital Course: 72 y o male was brought via EMS for change in mental status and generalized weakness. His w/u revealed severe dehydration, WON and pancytopenia. Patient was started on IV hydration and his renal function was closely monitored. US renal was negative for obstructive uropathy. His renal function slowly/progressively improved with good UO and good PO intake and after d/w patient, he felt comfortable going home and c/w oral hydration. He was given a script for BMP in one week and asked to f/u with PCP or his oncology for those results. Patient received one unit PRBC for anemia and was ordered 2 dosages of Neupogen by Oncology for neutropenia with improvement noted during the course of admission. Patient also was noted to have Afib briefly and reverted to NSR just with addition of PO Lopressor. 2D ECHO did not reveal any sig cardiac structural abnormality. Will defer decision to anticoagulate him for stroke px to Cardiology/PCP as outpatient. Patient received PT/OT while inpatient and has noticeable improvement in his functional status and is considered safe to go home. He plans to live with his daughter for now. Of note, patients confusion had resolved by the time I saw him next morning. However, given hx of metastatic lung cancer - MRI brain was performed to r/o intracranial metastasis and no sig intracranial was noted on MRI. On day of discharge - his urine cx was resulted and it showed heavy pseudomonas growth. He never reported urinary symptoms and while traditionally asymptomatic colonization does not necessary need to be treated but given his immunocomp romised status - I will prescribe him PO levaquin x 7 days. Patient needs to hold Losartan/metformin until cleared by PCP to safely resume those medications. Status at Discharge Functional status at discharge: uses cane/walker Overall status at discharge: patient is back to baseline Time Spent with Patient Time attestation: Total time spent providing and/or coordinating discharge services: Time spent: greater than 30 minutes Exam Constitutional Vital Signs, click to edit/add: Last Vital Signs Temp 98.1 F 04/05/23 19:30 Pulse 57 L 04/06/23 11:55 Resp 16 04/06/23 05:21 BP 138/70 04/06/23 05:21 Pulse Ox 98 04/06/23 05:21 O2 Del Method Room Air 04/06/23 05:21 Documenting provider has reviewed patient's vital signs: yes Common normals: no apparent distress and oriented x3 General appearance: cooperative HENMT Common normals: normocephalic and head/scalp atraumatic Head and scalp: normocephalic and atraumatic Eye Common normals: conjunctivae normal and no scleral icterus Conjunctiva: conjunctiva(e) normal Respiratory Common normals: normal respiratory effort and clear to auscultation bilaterally Effort & inspection: able to speak in complete sentences Auscultation: clear to auscultation bilaterally Cardio Common normals: regular rate, S1 normal heart sound and S2 normal heart sound Rate: regular rate Heart sounds: S1 normal and S2 normal GI Common normals: Normal to inspection, nondistended, normoactive bowel sounds present, soft to palpation, non-tender and no hepatosplenomegaly Palpation: soft and no hepatosplenomegaly Extremity Common normals: no clubbing, cyanosis or edema Neuro Common normals: oriented x3, moves all extremities and no focal motor deficits Psych Common normals: mental status grossly normal, denies hallucinations, denies homicidal ideation and denies suicidal ideation DS: Data Data Completed and Pending Labs on day of discharge: Labs from last 24 hours 04/06/23 04/05/23 04/05/23 05:08 21:46 16:22 WBC 15.3 H RBC 3.00 L Hgb 8.5 L Hct 26.7 L MCV 89.0 MCH 28.3 MCHC 31.8 RDW 15.0 Plt Count 257 MPV 10.2 Seg Neuts % (Manual) 48.0 Band Neutrophils % 27.0 H Lymphocytes % (Manual) 6.0 L Atypical Lymphs % (Man) 7.0 Monocytes % (Manual) 12.0 Eosinophils % (Manual) 0.0 L Basophils % (Manual) 0.0 L Neutrophils # (Manual) 7.34 H Band Neutrophils # 4.1 H Lymphocytes # (Manual) 0.91 L Abs Atypical Lymphs Man 1.1 Monocytes # (Manual) 1.83 H Eosinophils # (Manual) 0.00 Basophils # (Manual) 0.00 Nucleated RBCs 2 Hypochromasia 3+ Poikilocytosis 3+ Anisocytosis 3+ Sodium 140 Potassium 3.8 Chloride 109 H Carbon Dioxide 22.0 Anion Gap 12.8 BUN 25.0 H Creatinine 2.49 H Est GFR ( Amer) 31 L Est GFR (Non-Af Amer) 25 L BUN/Creatinine Ratio 10.0 Glucose 139 H Calcium 8.1 L Total Bilirubin 0.2 AST 45 H ALT 61 Alkaline Phosphatase 84 Total Protein 5.8 L Albumin 1.7 L Globulin 4.1 Albumin/Globulin Ratio 0.4 Procalcitonin POC Glucose 159 H 140 H 04/03/23 02:28 WBC RBC Hgb Hct MCV MCH MCHC RDW Plt Count MPV Seg Neuts % (Manual) Band Neutrophils % Lymphocytes % (Manual) Atypical Lymphs % (Man) Monocytes % (Manual) Eosinophils % (Manual) Basophils % (Manual) Neutrophils # (Manual) Band Neutrophils # Lymphocytes # (Manual) Abs Atypical Lymphs Man Monocytes # (Manual) Eosinophils # (Manual) Basophils # (Manual) Nucleated RBCs Hypochromasia Poikilocytosis Anisocytosis Sodium Potassium Chloride Carbon Dioxide Anion Gap BUN Creatinine Est GFR ( Amer) Est GFR (Non-Af Amer) BUN/Creatinine Ratio Glucose Calcium Total Bilirubin AST ALT Alkaline Phosphatase Total Protein Albumin Globulin Albumin/Globulin Ratio Procalcitonin 0.35 H POC Glucose Preliminary micro results at discharge 04/03/23 02:35 - Preliminary Blood NO GROWTH AT 36-48 HOURS. FINAL TO FOLLOW. 04/03/23 02:28 Blood Culture Result 1 - Preliminary Blood NO GROWTH AT 36-48 HOURS. FINAL TO FOLLOW. Discharge Plan Discharge Disposition: Home, Self-Care Discharge Medications: New metoprolol tartrate [Lopressor] 50 mg tablet 25 mg PO BID Qty: 60 0RF levofloxacin 250 mg tablet 250 mg PO DAILY 7 Days Qty: 7 0RF Continued gabapentin 300 mg capsule 300 mg PO Q12H allopurinol 100 mg tablet 100 mg PO DAILY Rx Instructions: LAST FILLED 03/17/23 - #14 FOR A 14 DAY SUPPLY ferrous sulfate [Feosol] 325 mg (65 mg iron) tablet 325 mg PO DAILY Patient Comments: LAST FILLED 09/22/22 atorvastatin 40 mg tablet 40 mg PO DAILY amlodipine 5 mg tablet 5 mg PO DAILY ondansetron HCl 8 mg tablet 8 mg PO Q8H tamsulosin [Flomax] 0.4 mg capsule 0.8 mg PO BEDTIME Patient Comments: at night insulin aspart U-100 [Novolog FlexPen U-100 Insulin] 100 unit/mL (3 mL) insulin pen 12 unit subcut .BIDAC Ozempic 1 mg/dose (2 mg/1.5 mL) pen injector 1 mg subcut QWEEK cholecalciferol (vitamin D3) [Thera-D] 50 mcg (2,000 unit) tablet 2,000 unit PO DAILY Changed insulin glargine-yfgn 100 unit/mL (3 mL) insulin pen 30 unit subcut DAILY Qty: 0 0RF Discontinued losartan [Cozaar] 50 mg tablet 50 mg PO DAILY metformin 500 mg tablet extended release 24 hr 500 mg PO BID Activity: increase activity as tolerated Diet: advance to your usual diet Patient Instructions: Metoprolol (By mouth), Acute Kidney Injury (DC), Weakness (DC) Mirror Painter/Senior Contract Specialist Instructions: Discharge home with [facility], contact number is [phone]. Forms: Portal Instructions Follow Up Appointments: F/u PCP in one week.CO DR Albright [phone] (Office not answering phones )Please tell your doctor you Would need a Cardiology referral for new onset Afib. Patient will also need BMP in one week to ensure renal function is improving. (Paper requisition given to pt for lab to be drawn next )
[2023-04-06 17:09] LABS: Osmolality, Urine 211 mOsmol/kg (.)
--- NOTE | 2023-04-09 16:00 | CM.DCFOLLOWU ---
Person spoke with: Ricardo How are you feeling? Much better How is your pain? No pain Did you understand your discharge instructions? Yes Do you have any questions about your discharge instructions? No Were you given any prescriptions at discharge? Yes Were you able to get your prescriptions filled? Yes Do you understand how to take your medications as ordered? Yes Do you have any questions about your follow up appointment and do you plan to keep your follow up appointment? Sunday I see my primary care doctor- also reminded pt about repeat blood work prior to see family doctor. Is there anything else that you would like to discuss? No Questions/Comments/Concerns/Other:
[2023-09-03 13:44] LABS: Reticulocyte Count 1.59 % (0.60-3.10)
== END 2023-04-06 12:13 | disposition home or self-care (01) | DRG 682 ==
LOC: ER 22:32 → ICU 22:59 → MS 04-06 06:05
PROVIDERS: Emergency Medicine; Internal Medicine; Admitting Provider Internal Medicine; Emergency Provider Emergency Medicine
DX: N17.0 Acute kidney failure with tubular necrosis (principal); D61.810 Antineoplastic chemotherapy induced pancytopenia; N39.0 Urinary tract infection, site not specified; C19 Malignant neoplasm of rectosigmoid junction; C78.00 Secondary malignant neoplasm of unspecified lung; C78.7 Secondary malignant neoplasm of liver and intrahepatic bile duct; E87.1 Hypo-osmolality and hyponatremia; E88.3 Tumor lysis syndrome; N18.4 Chronic kidney disease, stage 4 (severe); R41.82 Altered mental status, unspecified; E86.0 Dehydration; B96.5 Pseudomonas (aeruginosa) (mallei) (pseudomallei) as the cause of diseases classified elsewhere; I48.91 Unspecified atrial fibrillation; R53.1 Weakness; R29.6 Repeated falls; E11.22 Type 2 diabetes mellitus with diabetic chronic kidney disease; I12.9 Hypertensive chronic kidney disease with stage 1 through stage 4 chronic kidney disease, or unspecified chronic kidney disease; E78.00 Pure hypercholesterolemia, unspecified; N40.0 Benign prostatic hyperplasia without lower urinary tract symptoms; Z79.4 Long term (current) use of insulin; Z79.84 Long term (current) use of oral hypoglycemic drugs; Z79.899 Other long term (current) drug therapy; Z91.81 History of falling; Z93.3 Colostomy status
CPT/HCPCS: 36410; 36415; 36430; 36592; 70450; 70551; 71045; 76706; 76770; 80048; 80053; 80076; 81001; 82043; 82140; 82550; 82570; 82607; 82728; 82746; 82948; 83010; 83036; 83540; 83550; 83605; 83615; 83690; 83735; 83935; 84145; 84156; 84300; 84443; 84484; 84550; 85014; 85018; 85025; 85027; 85045; 86850; 86920; 87040; 87086; 87150; 87186; 87635; 87811; 93005; 93306; 94761; 96361; 96365; 96366; 96368; 96375; 97110; 97165; 97530; 99285; C1887; G0378; J1442; J3370; P9016; Q3014; U0003